=== PATIENT | female | born 1960 | race Caucasian/White ===

== ENCOUNTER → 2017-12-04 07:00 | Outpatient (CLI) | payer OTHER, SELFPAY ==
[2017-12-04 10:41] LABS: AST(SGOT) 20 U/L (15-37); Alanine Aminotransfer ALT/SGPT 22 U/L (13-56); Albumin, Serum 3.8 g/dL (3.2-5.0); Alkaline Phosphatase 51 U/L (45-117); Bilirubin, Direct 0.15 mg/dL (0.00-0.30); Cholesterol 173 mg/dL (200); Globulin 3.2 g/dL (2.2-4.2); High Density Lipoprotein 76 mg/dL; Triglycerides 48 mg/dL; Very Low Density Lipoprotein 10 mg/dL (5-40)
== END ==
PROVIDERS: Family Provider Family Medicine; PCP Family Medicine; Visit Provider Internal Medicine Cardiovascular Disease
DX: I34.1 Nonrheumatic mitral (valve) prolapse (principal); R07.89 Other chest pain
CPT/HCPCS: 36415; 80061; 80076

== ENCOUNTER 2018-10-02 07:00 | Outpatient (RCR) | payer OTHER, SELFPAY ==
--- NOTE | 2018-09-25 08:19 | HP.PTEVAL_ITS ---
Patient's Visit Information OSWALDO LARSEN is a 57 year old F referred to Physical Therapy by Juliane Licea with a diagnosis of Shoulder Pain. Date of Evaluation: 09/25/18 Physical Therapist: Lana Yuen - Visit Plan Frequency: 1x/Week Duration: 6 Weeks Plan: Dry Needling and Scapular s/s - Subjective Subjective: Right shoulder- insidious onset for about 4 months- after about 2 months- x-rays- negative- gave her options- tried a massage but that did not help. Feels it if she rotates her head to the side and at night it bothers her. Hard to get comfortable- went back about 10 days after the massage- Cortisone injection took about 2 days but it helped a little bit but its not 100% better- is more inconsistent- mid August. Pain is located right on the shoulder blade. If you palpate the area it recreates the pain. Agg: laying in bed at night. Worst: 5/10 Describes the pain as stabbing at night and will take her breath away. Eases: moving makes it feel better. Best: 0/10. Sore after the jabbing pain. Sleep: disturbed- right side and back. No pain that radiates down the arm- no N/T. Does [employer]. High school- sitting most of the day. PMHx: - Objective Posture: FH, RS, Increased winging of the right scapula. Gait: no deviation. ROM: WNL in all planes of the cervical and shoulder- increased discomfort with rotation. Strength:Scap: fair minus, Shoulder: 4/5 throughout, Elbow: 5/5, Certified Income Tax Preparer: WNL. Special Test: Briceno: negative. Palpation: tender along medial border of the scapula and into the UT and Levator. - Goals Goal 1:: Patient will be I with HEP and progression Goal Time Frame: 4-6 Weeks Goal 2:: Patient will maintain proper posture t/o tx session to demo increased scap s/s. Goal Time Frame: 4-6 Weeks Goal 3:: Patient will report no pain at night for 1 week Goal Time Frame: 4-6 Weeks - Rehabilitation Potential Physical Therapy Diagnosis: Patient presents with hypomobility- she has decreased scapular s/s leading to poor posture and increased pain. - Anticipated Interventions Patient/Client Instruction: Educate patient on: Benefits of Fitness Program Therapeutic Exercise to Include: Strength training, Endurance training, Body mechanics, Postural training, Scapular Strength/Stabilization For the Purpose of:: To improve muscle performance and motor function Manual Therapy Techniques to Include: Functional dry needling Thank you for the opportunity to evaluate your patient. For Medicare and Medicare HMO plans, please review the plan of care and approve it. It will need to be FAXED BACK to us at [phone] for Medicare purposes. Please let me know if there are questions or concerns regarding this plan of care. Physician Signature: Date:
--- NOTE | 2019-03-05 11:03 | HP.PT.NRP ---
HP - Discharge Summary (1) - Patient Information OSWALDO LARSEN was seen in my office for initial evaluation on 09/25/18. The following Plan of Care was established for this patient: Initial Frequency: 1x/Week Initial Duration: 6 Weeks - Anticipated Interventions Patient/Client Instruction: Educate patient on: Benefits of Fitness Program Therapeutic Exercise to Include: Strength training, Endurance training, Body mechanics, Postural training, Scapular Strength/Stabilization For the Purpose of:: To improve muscle performance and motor function Manual Therapy Techniques to Include: Functional dry needling This patient was last seen in our office . Pertinent comments regarding their Physical therapy will appear below: Self pay Dry needling- appropriate for d/c At this point I will be discontinuing this patient from physical therapy. I would be happy to see this patient again in the future if found appropriate by the physician. Thank you! JAMES WheelerT
== END 2018-10-02 19:00 | disposition home or self-care (01) ==
LOC: PT 07:00
PROVIDERS: Family Provider Family Medicine; PCP Family Medicine; Referring Provider Physician Assistant; Visit Provider Physician Assistant
DX: S46.811D Strain of other muscles, fascia and tendons at shoulder and upper arm level, right arm, subsequent encounter (principal)
CPT/HCPCS: 97110; 97161

== ENCOUNTER → 2018-12-11 06:19 | Outpatient (CLI) | payer OTHER, SELFPAY ==
[2018-12-11 08:48] LABS: AST(SGOT) 22 U/L (15-37); Alanine Aminotransfer ALT/SGPT 25 U/L (13-56); Albumin, Serum 3.9 g/dL (3.2-5.0); Alkaline Phosphatase 57 U/L (45-117); Bilirubin, Direct 0.22 mg/dL (0.00-0.30); Cholesterol 176 mg/dL (200); Globulin 3.2 g/dL (2.2-4.2); High Density Lipoprotein 81 mg/dL; Protein, Total 7.1 g/dL (6.4-8.2); Triglycerides 63 mg/dL; Very Low Density Lipoprotein 13 mg/dL (5-40)
== END ==
PROVIDERS: Family Provider Family Medicine; PCP Family Medicine; Referring Provider Internal Medicine Cardiovascular Disease; Visit Provider Internal Medicine Cardiovascular Disease
DX: I34.1 Nonrheumatic mitral (valve) prolapse (principal); Z79.899 Other long term (current) drug therapy
CPT/HCPCS: 36415; 80061; 80076

== ENCOUNTER → 2018-12-17 06:58 | Outpatient (CLI) | payer OTHER, SELFPAY ==
--- NOTE | 2018-12-17 07:01 | BI_ITS ---
MAMMOGRAPHY - BILATERAL SCREENING REASON FOR EXAM: Female, 58 years old. Routine annual screening examination. PERTINENT HISTORY: Non-contributory. TECHNIQUE: Digital bilateral breast henrique (3D mammographic acquisition) in the CC and MLO projections. 2-D mediolateral oblique (MLO) and craniocaudad (CC) views of both breasts were obtained. CAD: Full Field Digital Mammography with Computer Added Detection was performed. COMPARISON: Comparison is made with prior study dated October 25, 2017. FINDINGS: Breast Composition: There are scattered areas of fibroglandular density. There are no dominant masses or suspicious calcifications. No other significant abnormalities are identified. There has been no significant change since the prior study. BI/SCREENING MAMM (CAD), BILAT IMPRESSION: Stable bilateral screening mammogram. Yearly follow-up mammogram recommended. (A) ASSESSMENT CATEGORY: BIRADS Category 1: Negative. A letter regarding these results will be sent to the patient by the facility within 30 days. Approximately 10% of breast cancers are not detected by mammography. A normal mammogram should not delay biopsy of a clinically suspicious abnormality. [id number] Electronically Signed: Jf Goetz MD at 8:44 EST , Service support ,
== END ==
PROVIDERS: Family Provider Family Medicine; PCP Family Medicine; Referring Provider Nurse Practitioner Women's Health; Visit Provider Nurse Practitioner Women's Health
DX: Z12.31 Encounter for screening mammogram for malignant neoplasm of breast (principal)
CPT/HCPCS: 77067

== ENCOUNTER → 2019-09-03 15:49 | Outpatient (CLI) | payer OTHER, SELFPAY ==
[2019-09-03 14:14] VITALS: BMI 22.1
== END ==
PROVIDERS: Family Provider Family Medicine; PCP Family Medicine; Referring Provider Nurse Practitioner Women's Health; Visit Provider Nurse Practitioner Women's Health
DX: N89.8 Other specified noninflammatory disorders of vagina (principal)
CPT/HCPCS: 87070; 87205

== ENCOUNTER → 2019-12-16 07:24 | Outpatient (CLI) | payer OTHER, SELFPAY ==
[2019-10-03 14:59] VITALS: BMI 22.1
[2019-12-16 10:33] LABS: Anion Gap 5 (5-15); BUN 23 mg/dL (7-18); BUN/Creat Ratio 28.8 RATIO (10-20); Calcium,Total 9.2 mg/dL (8.5-10.1); Chloride 109 mmol/L (98-107); Cholesterol 179 mg/dL (200); EST Glomerular Filtration Rate 79 mL/min (>60); Est Glom Filt Rate - Afr Amer 95 mL/min (>60); Glucose 86 mg/dL (74-106); High Density Lipoprotein 82 mg/dL; Potassium 3.6 mmol/L (3.5-5.1); Sodium Level 143 mmol/L (136-145); Triglycerides 51 mg/dL; Very Low Density Lipoprotein 10 mg/dL (5-40)
== END ==
PROVIDERS: PCP Family Medicine; Referring Provider Family Medicine; Visit Provider Family Medicine
DX: Z13.1 Encounter for screening for diabetes mellitus (principal); Z13.220 Encounter for screening for lipoid disorders
CPT/HCPCS: 36415; 80048; 80061

== ENCOUNTER → 2019-12-18 07:22 | Outpatient (CLI) | payer OTHER, SELFPAY ==
[2018-12-17 13:24] VITALS: BMI 22.1
[2019-10-03 14:59] VITALS: BMI 22.1
--- NOTE | 2019-12-18 07:22 | BI_ITS ---
MAMMOGRAPHY - BILATERAL SCREENING REASON FOR EXAM: Female, 59 years old. Routine annual screening examination. PERTINENT HISTORY: Non-contributory. TECHNIQUE: Digital bilateral breast melinda (3D mammographic acquisition) in the CC and MLO projections. 2-D mediolateral oblique (MLO) and craniocaudad (CC) views of both breasts were obtained. CAD: Full Field Digital Mammography with Computer Added Detection was performed. COMPARISON: Comparison is made with prior examination dated December 17, 2018 and October 25, 2017. FINDINGS: Breast Composition: There are scattered areas of fibroglandular density. There are no dominant masses or suspicious calcifications. No other significant abnormalities are identified. There has been no significant change since the prior study. BI/SCREEN MAMM (CAD) W/MELINDA BILAT IMPRESSION: Stable bilateral screening mammogram. Yearly follow-up mammogram recommended. (A) ASSESSMENT CATEGORY: BIRADS Category 1: Negative. A letter regarding these results will be sent to the patient by the facility within 30 days. Approximately 10% of breast cancers are not detected by mammography. A normal mammogram should not delay biopsy of a clinically suspicious abnormality. [id number] Electronically Signed: Jf Goetz, at 9:00 EST , Service support ,
== END ==
PROVIDERS: Family Provider Family Medicine; PCP Family Medicine; Referring Provider Nurse Practitioner Women's Health; Visit Provider Nurse Practitioner Women's Health
DX: Z12.31 Encounter for screening mammogram for malignant neoplasm of breast (principal)
CPT/HCPCS: 77063; 77067

== ENCOUNTER → 2019-12-25 11:31 | Outpatient (CLI) | payer OTHER, SELFPAY ==
[2019-12-18 14:28] VITALS: BMI 19.0
[2019-12-25 14:05] LABS: Absolute Lymphocyte Count 1.25 X10^3/uL (0.83-4.51); Absolute Neutrophil Count 2.8 X10^3/uL (2.0-7.7); Basophil# 0.04 X10^3/uL; Basophil% 0.9 % (0-1); Eosinophil# 0.05 X10^3/uL; Eosinophils% 1.1 % (0-5); Hematocrit 38.8 % (37-47); Hemoglobin 12.8 g/dL (12.0-15.0); Lymphocyte # 1.25 X10^3/ul (4.0); Lymphocyte % 27.8 % (19-41); Mean Corpuscular Hgb 30.9 pg (27.0-32.0); Mean Corpuscular Volume 93.7 fL (81-99); Mean Platelet Vol. 9.8 fl (6.2-12.0); Monocyte# 0.31 X10^3/uL; Monocyte% 6.9 % (0-10); NRBC Flagged by Analyzer 0 % (0-5); Neutrophil # 2.82 X10^3/uL (2.7-7.7); Neutrophil % 62.9 % (47-70); Platelet Count 281 K/mm3 (150-450); RBC Distribution Width CV 12.2 % (11.6-14.6); RBC Distribution Width SD 42.2 fl (35.1-43.9); Red Blood Count 4.14 M/mm3 (4.2-5.4); White Blood Count 4.5 K/mm3 (4.4-11.0)
== END ==
PROVIDERS: PCP Family Medicine; Referring Provider Family Medicine; Visit Provider Family Medicine
DX: R59.1 Generalized enlarged lymph nodes (principal)
CPT/HCPCS: 36415; 85025

== ENCOUNTER → 2020-03-17 12:23 | Outpatient (CLI) | payer OTHER, SELFPAY ==
[2019-12-18 14:28] VITALS: BMI 19.0
--- NOTE | 2020-03-17 12:31 | US_ITS ---
STUDY: Soft tissue neck ULTRASOUND REASON FOR EXAM: Female, 59 years old. LEFT NECK LYMPHADENOPATHY TECHNIQUE: Ultrasound evaluation of the soft tissue neck was performed with real-time and static reynolds-scale imaging. COMPARISON: None. FINDINGS: Multiple longitudinal and transverse ultrasound images of the left side of neck fail to demonstrate an abnormal solid or cystic mass or lymphadenopathy. Some normal subcentimeter lymph nodes are noted.. US/Head/Neck Soft Tissue IMPRESSION: Normal ultrasound examination of the neck. Electronically Signed: Adam Adams MD at 13:28 EDT Tel , Service support ,
== END ==
PROVIDERS: PCP Family Medicine; Referring Provider Family Medicine; Visit Provider Family Medicine
DX: R59.1 Generalized enlarged lymph nodes (principal)
CPT/HCPCS: 76536

== ENCOUNTER → 2020-04-24 15:44 | Outpatient (CLI) | payer OTHER, SELFPAY ==
[2019-12-18 14:28] VITALS: BMI 19.0
[2020-04-24 17:28] LABS: Absolute Lymphocyte Count 1.36 X10^3/uL (0.83-4.51); Absolute Neutrophil Count 3.2 X10^3/uL (2.0-7.7); Basophil# 0.04 X10^3/uL; Basophil% 0.8 % (0-1); Eosinophil# 0.14 X10^3/uL; Eosinophils% 2.8 % (0-5); Hemoglobin 13.4 g/dL (12.0-15.0); Lymphocyte # 1.36 X10^3/ul (4.0); Lymphocyte % 26.9 % (19-41); Mean Corp Hgb Conc 33.5 g/dL (32-36); Mean Corpuscular Hgb 31.6 pg (27.0-32.0); Mean Corpuscular Volume 94.3 fL (81-99); Mean Platelet Vol. 9.9 fl (6.2-12.0); Monocyte# 0.36 X10^3/uL; Monocyte% 7.1 % (0-10); NRBC Flagged by Analyzer 0 % (0-5); Neutrophil # 3.15 X10^3/uL (2.7-7.7); Neutrophil % 62.2 % (47-70); Platelet Count 277 K/mm3 (150-450); RBC Distribution Width CV 12.2 % (11.6-14.6); Red Blood Count 4.24 M/mm3 (4.2-5.4); White Blood Count 5.1 K/mm3 (4.4-11.0)
[2020-04-24 17:39] LABS: ALB/GLOB Ratio 1.1 RATIO (0.9-2.4); AST(SGOT) 22 U/L (15-37); Alanine Aminotransfer ALT/SGPT 25 U/L (13-56); Albumin, Serum 3.9 g/dL (3.2-5.0); Alkaline Phosphatase 54 U/L (45-117); Anion Gap 5 (5-15); BUN 20 mg/dL (7-18); BUN/Creat Ratio 27.1 RATIO (10-20); Calcium,Total 9.2 mg/dL (8.5-10.1); Chloride 104 mmol/L (98-107); Creatinine, Serum 0.74 mg/dL (0.55-1.02); EST Glomerular Filtration Rate 86 mL/min (>60); Est Glom Filt Rate - Afr Amer 104 mL/min (>60); Globulin 3.5 g/dL (2.2-4.2); Glucose 105 mg/dL (74-106); Potassium 3.9 mmol/L (3.5-5.1); Protein, Total 7.4 g/dL (6.4-8.2); Sodium Level 139 mmol/L (136-145)
== END ==
PROVIDERS: PCP Family Medicine; Referring Provider Family Medicine; Visit Provider Family Medicine
DX: R19.7 Diarrhea, unspecified (principal)
CPT/HCPCS: 36415; 80053; 83735; 85025; 87177; 87209; 87493; 87506

== ENCOUNTER → 2020-04-27 | Outpatient (CLI) | payer OTHER, SELFPAY ==
[2019-12-18 14:28] VITALS: BMI 19.0
== END | disposition home or self-care (01) ==
LOC: LABSPEC 07:43
PROVIDERS: PCP Family Medicine; Referring Provider Family Medicine; Visit Provider Family Medicine
DX: R19.7 Diarrhea, unspecified (principal)
CPT/HCPCS: 87177; 87209; 87493

== ENCOUNTER → 2020-10-19 | Outpatient (CLI) | payer OTHER, SELFPAY ==
[2019-12-18 14:28] VITALS: BMI 19.0
== END | disposition home or self-care (01) ==
LOC: MFPLAB 09:25 → LABSPEC 09:26
PROVIDERS: PCP Family Medicine; Referring Provider Family Medicine; Visit Provider Family Medicine
DX: Z20.828 Contact with and (suspected) exposure to other viral communicable diseases (principal)
CPT/HCPCS: 87635; U0003

== ENCOUNTER → 2020-10-27 09:57 | Outpatient (CLI) | payer OTHER, SELFPAY ==
[2019-12-18 14:28] VITALS: BMI 19.0
[2020-10-27 12:11] LABS: Absolute Lymphocyte Count 1.16 X10^3/uL (0.83-4.51); Absolute Neutrophil Count 3.3 X10^3/uL (2.0-7.7); Basophil# 0.06 X10^3/uL; Basophil% 1.2 % (0-1); Eosinophil# 0.09 X10^3/uL; Eosinophils% 1.8 % (0-5); Hematocrit 40.4 % (37-47); Hemoglobin 13.4 g/dL (12.0-15.0); Lymphocyte # 1.16 X10^3/ul (4.0); Lymphocyte % 23.5 % (19-41); Mean Corp Hgb Conc 33.2 g/dL (32-36); Mean Corpuscular Hgb 30.6 pg (27.0-32.0); Mean Corpuscular Volume 92.2 fL (81-99); Mean Platelet Vol. 9.6 fl (6.2-12.0); Monocyte# 0.29 X10^3/uL; Monocyte% 5.9 % (0-10); Neutrophil # 3.33 X10^3/uL (2.7-7.7); Neutrophil % 67.6 % (47-70); Platelet Count 307 K/mm3 (150-450); RBC Distribution Width CV 12.1 % (11.6-14.6); RBC Distribution Width SD 41.6 fl (35.1-43.9); Red Blood Count 4.38 M/mm3 (4.2-5.4); White Blood Count 4.9 K/mm3 (4.4-11.0)
[2020-10-27 13:04] LABS: Anion Gap 5 (5-15); BUN 23 mg/dL (7-18); Calcium,Total 9.4 mg/dL (8.5-10.1); Chloride 106 mmol/L (98-107); Creatinine, Serum 0.79 mg/dL (0.55-1.02); EST Glomerular Filtration Rate 79 mL/min (>60); Est Glom Filt Rate - Afr Amer 95 mL/min (>60); Glucose 85 mg/dL (74-106); Potassium 3.9 mmol/L (3.5-5.1); Sodium Level 139 mmol/L (136-145); Thyroid Stim Hormone (TSH) 1.47 uIU/mL (0.358-3.74)
== END ==
PROVIDERS: PCP Family Medicine; Visit Provider Family Medicine
DX: R42 Dizziness and giddiness (principal)
CPT/HCPCS: 36415; 80048; 83735; 84443; 85027

== ENCOUNTER → 2020-12-21 05:55 | Outpatient (CLI) | payer OTHER, SELFPAY ==
[2020-12-14 13:48] VITALS: BMI 19.6
[2020-12-21 07:55] LABS: AST(SGOT) 19 U/L (15-37); Alanine Aminotransfer ALT/SGPT 21 U/L (13-56); Albumin, Serum 3.7 g/dL (3.2-5.0); Alkaline Phosphatase 52 U/L (45-117); Bilirubin, Direct 0.14 mg/dL (0.00-0.30); Cholesterol 196 mg/dL (200); Globulin 3.4 g/dL (2.2-4.2); High Density Lipoprotein 79 mg/dL; Protein, Total 7.1 g/dL (6.4-8.2); Triglycerides 87 mg/dL; Very Low Density Lipoprotein 17 mg/dL (5-40)
== END ==
PROVIDERS: PCP Family Medicine; Referring Provider Internal Medicine Cardiovascular Disease; Visit Provider Internal Medicine Cardiovascular Disease
DX: E78.00 Pure hypercholesterolemia, unspecified (principal); R00.2 Palpitations; R07.89 Other chest pain
CPT/HCPCS: 36415; 80061; 80076

== ENCOUNTER → 2020-12-24 07:23 | Outpatient (CLI) | payer OTHER, SELFPAY ==
[2019-12-18 14:28] VITALS: BMI 19.0
[2020-12-14 13:48] VITALS: BMI 19.6
--- NOTE | 2020-12-24 07:26 | BI_ITS ---
MAMMOGRAPHY - BILATERAL SCREENING REASON FOR EXAM: Female, 60 years old. Routine annual screening examination. PERTINENT HISTORY: Non-contributory. TECHNIQUE: Digital bilateral breast melinda (3D mammographic acquisition) in the CC and MLO projections. 2-D mediolateral oblique (MLO) and craniocaudad (CC) views of both breasts were obtained. CAD: Full Field Digital Mammography with Computer Added Detection was performed. COMPARISON: Comparison is made with prior study dated 12/18/2019 12/17/2018. FINDINGS: Breast Composition: There are scattered areas of fibroglandular density. There are no dominant masses or suspicious calcifications. No other significant abnormalities are identified. There has been no significant change since the prior study. BI/SCRN MAMM (CAD)W/MELINDA BILAT IMPRESSION: Stable bilateral screening mammogram. Yearly follow-up mammogram recommended. (A) ASSESSMENT CATEGORY: BIRADS Category 1: Negative. A letter regarding these results will be sent to the patient by the facility within 30 days. Approximately 10% of breast cancers are not detected by mammography. A normal mammogram should not delay biopsy of a clinically suspicious abnormality. [id number] Electronically Signed: Jf Goetz MD at 8:35 EST , Service support ,
== END ==
PROVIDERS: PCP Family Medicine; Referring Provider Nurse Practitioner Women's Health; Visit Provider Nurse Practitioner Women's Health
DX: Z12.31 Encounter for screening mammogram for malignant neoplasm of breast (principal)
CPT/HCPCS: 77063; 77067

== ENCOUNTER → 2021-04-05 16:47 | Outpatient (CLI) | payer OTHER, SELFPAY ==
[2020-12-24 08:09] VITALS: BMI 22.6
--- NOTE | 2021-04-05 16:49 | RAD_ITS ---
HISTORY: Trauma, foot injury EXAMINATION/TECHNIQUE: XR Foot Min 3 Views: COMPARISON: Right foot series 06/14/16 FINDINGS: BONES/JOINTS: Nondisplaced intra-articular fracture at the fifth proximal phalanx, MTP joint. Preservation of the joint spaces. No sclerotic or destructive changes observed. SOFT TISSUES: No soft tissue swelling or gas. No radiopaque foreign body. RAD/Foot min 3 Views IMPRESSION: Nondisplaced intra-articular fracture fifth proximal phalanx. at 1711 Reported and signed by: Bin Trujillo MD Electronically Signed: Bin Trujillo MD at 17:10 EDT Tel , Service support ,
== END ==
PROVIDERS: PCP Family Medicine; Referring Provider Family Medicine; Visit Provider Family Medicine
DX: S99.921A Unspecified injury of right foot, initial encounter (principal)
CPT/HCPCS: 73630

== ENCOUNTER → 2021-06-23 | Outpatient (CLI) | payer OTHER, SELFPAY | END | disposition home or self-care (01) | PROVIDERS: PCP Family Medicine; Referring Provider Family Medicine; Visit Provider Family Medicine | DX: Z20.822 Contact with and (suspected) exposure to COVID-19 (principal) | CPT/HCPCS: 87635; U0005; U0003 ==

== ENCOUNTER → 2021-08-19 06:20 | Outpatient (CLI) | payer OTHER, SELFPAY ==
--- NOTE | 2021-08-19 07:00 | MRI_ITS ---
STUDY: MRI RIGHT FOREFOOT WITHOUT CONTRAST REASON FOR EXAM: Continued pain in the arch of the right foot, fracture of the right fifth proximal phalanx in March. TECHNIQUE: Standardized fat and water weighted pulse sequences were obtained in all 3 orthogonal planes. COMPARISON: Radiographs 06/05/2021. FINDINGS: There is mild arthrosis of the metatarsophalangeal joint of the hallux with mild chondral thinning and an osteochondral lesion of the first metatarsal head (T1 sagittal image 5) measuring 0.3 cm in AP dimension with cystic change of the fragment (inversion recovery sagittal image 5). Normal tibial and fibular sesamoids, with normal sesamoids-first metatarsal articulations. Normal interphalangeal joint of the hallux. Normal proximal and distal phalanges of the great toe. Normal medial and lateral heads of the flexor hallucis brevis tendons. Normal flexor and extensor hallucis longus tendons. Normal second through fifth metatarsophalangeal (MTP) joints. Normal interphalangeal joints of the second through fifth toes. Normal proximal, middle and distal phalanges of the second through fourth toes. There is mild healed fracture deformity of the medial base of the fifth metatarsal (T2 series 5 image 11) with mild residual bone edema in the medial aspect of the right fifth metatarsal base (inversion recovery sagittal image 23). There is an intermetatarsal neuroma of the second webspace (T1 axial series 6 images 26, 27) measuring 0.3 cm in transverse dimension. There is mild intermetatarsal bursitis of the third webspace (T2 series 7 image 23). Normal flexor and extensor tendons of the second through fifth toes. There is no stress fracture or bone edema of the metatarsals. Normal intrinsic muscles of the forefoot. There is a pressure lesion in the subcutis adipose space at the plantar lateral aspect of the fifth metatarsophalangeal joint (T1 series 6 images 19-21). MRI/Lower Ext/No Jt/w/o IMPRESSION: Mild healed fracture deformity of the medial base of the fifth metatarsal with mild residual bone edema. Intermetatarsal neuroma of the second webspace. Mild intermetatarsal bursitis of the third webspace. Mild arthrosis of the first metatarsophalangeal joint with an osteochondral lesion of the first metatarsal head. Pressure lesion in the subcutis adipose space at the plantar lateral aspect of the fifth metatarsophalangeal joint. No demonstrated metatarsal stress fracture. Electronically Signed: Adalberto Clements MD at 8:29 EDT Tel , Service support ,
== END ==
PROVIDERS: PCP Family Medicine; Referring Provider Podiatrist; Visit Provider Podiatrist
DX: M84.374A Stress fracture, right foot, initial encounter for fracture (principal)
CPT/HCPCS: 73718

== ENCOUNTER → 2021-08-26 11:55 | Outpatient (CLI) | payer OTHER, SELFPAY ==
--- NOTE | 2021-08-26 11:58 | RAD_ITS ---
STUDY: X-RAY - CERVICAL SPINE REASON FOR EXAM: Female, 60 years old. CERVICALGIA TECHNIQUE: 5 view(s) of the cervical spine were obtained. COMPARISON: None FINDINGS: Normal anterior atlantoaxial articulation. Normal odontoid process. Normal cervical lordosis. There is multi-level endplate spondylosis. There is multi-level degenerative disc disease with multilevel disc space narrowing. There is multi-level osseous foraminal stenosis. 2 mm retrolisthesis of C4 on C5 and C5 on C6. The soft tissue structures are unremarkable. RAD/Cerv Spine 4 or 5 Views IMPRESSION: Severe degenerative disc disease with 2 mm retrolisthesis of C4 on C5 and C5 on C6. Electronically Signed: Adam Adams MD at 9:20 EDT Tel , Service support ,
== END ==
PROVIDERS: PCP Family Medicine; Referring Provider Family Medicine; Visit Provider Family Medicine
DX: M50.321 Other cervical disc degeneration at C4-C5 level (principal); M47.812 Spondylosis without myelopathy or radiculopathy, cervical region
CPT/HCPCS: 72050

== ENCOUNTER 2021-11-02 23:39 | Emergency (ER) | payer OTHER, SELFPAY ==
[2021-11-02 23:40] VITALS: BP 137/83; PULSE 101; RESP 18; TEMP 36.6; O2SAT 98; BMI 23.2
[2021-11-02 23:50] VITALS: O2SAT 99
--- NOTE | 2021-11-02 23:50 | EKG12_ITS ---
Test Reason : CHEST PAIN Blood Pressure : / mmHG Vent. Rate : 074 BPM Atrial Rate : 074 BPM P-R Int : 118 ms QRS Dur : 082 ms QT Int : 362 ms P-R-T Axes : 063 082 045 degrees QTc Int : 401 ms Normal sinus rhythm Nonspecific ST and T wave abnormality Abnormal ECG Confirmed by JAYE WHELAN, CALE ([id number]), assistant editor DANISH FINCH ([id number]) on 11/05/2021 9:57:27 AM Referred By: JALEEL Confirmed By:CALE CEE MD
--- NOTE | 2021-11-03 | RAD_ITS ---
STUDY: X-RAY CHEST REASON FOR EXAM: Female, 61 years old. chest pain TECHNIQUE: Single AP portable view of the chest. COMPARISON: None. FINDINGS: The lungs are clear and expanded. There is no demonstrated pleural abnormality. Normal size heart. Normal mediastinum and xiomara. Normal visualized pulmonary arteries. Normal visualized aortic arch and descending thoracic aorta. Normal visualized thoracic spine. Normal visualized ribs, clavicles, and shoulders. There is no demonstrated abnormality of the visualized soft tissue structures of the upper abdomen. RAD/Chest 1 View (Portable) IMPRESSION: Normal x-ray examination of the chest. Electronically Signed: Wilberto Kim MD at 0:30 EST Tel , Service support ,
[2021-11-03 00:15] LABS: Absolute Lymphocyte Count 2.13 X10^3/uL (0.83-4.51); Absolute Neutrophil Count 2.5 X10^3/uL (2.0-7.7); Basophil# 0.05 X10^3/uL; Basophil% 0.9 % (0-1); Eosinophil# 0.17 X10^3/uL; Eosinophils% 3.1 % (0-5); Hematocrit 38.9 % (37-47); Hemoglobin 13.1 g/dL (12.0-15.0); Lymphocyte # 2.13 X10^3/ul (0.83-4.51); Lymphocyte % 38.7 % (19-41); Mean Corp Hgb Conc 33.7 g/dL (32-36); Mean Corpuscular Hgb 30.4 pg (27.0-32.0); Mean Corpuscular Volume 90.3 fL (81-99); Mean Platelet Vol. 9.2 fl (6.2-12.0); Monocyte# 0.64 X10^3/uL; Monocyte% 11.6 % (0-10); NRBC Flagged by Analyzer 0 % (0-5); Neutrophil % 45.5 % (47-70); Platelet Count 371 K/mm3 (150-450); RBC Distribution Width CV 11.9 % (11.6-14.6); RBC Distribution Width SD 39.1 fl (35.1-43.9); Red Blood Count 4.31 M/mm3 (4.2-5.4); White Blood Count 5.5 K/mm3 (4.4-11.0)
[2021-11-03] MEDS: Aspirin 81 MG TAB.CHEW 324 MG PO (00:21)
[2021-11-03 00:33] LABS: Anion Gap 8 (5-15); BUN 16 mg/dL (7-18); BUN/Creat Ratio 20.7 RATIO (10-20); Chloride 106 mmol/L (98-107); Creatinine, Serum 0.77 mg/dL (0.55-1.02); EST Glomerular Filtration Rate 81 mL/min (>60); Est Glom Filt Rate - Afr Amer 98 mL/min (>60); Estimated Creatinine Clearance 55.81 ml/min; Glucose 122 mg/dL (74-106); Potassium 3.6 mmol/L (3.5-5.1); Sodium Level 143 mmol/L (136-145); Troponin-I HS 4 pg/mL (3.0-54.0)
[2021-11-03 00:47] LABS: Magnesium 2.1 mg/dL (1.6-2.6)
--- NOTE | 2021-11-03 00:50 | NURSING ---
Vu, in pharm, called for booster.
[2021-11-03 00:51] VITALS: BP 107/61; PULSE 73; RESP 16; O2SAT 97
--- NOTE | 2021-11-03 00:53 | EDS_ITS ---
HPI History of Present Illness Chief Complaint: Chest Pain Informant: patient Narrative Narrative: Patient presents with intermittent chest pressure and palpitations reporting concerns for paroxysmal atrial fibrillation. Symptoms started September 29 over a month ago felt palpitations occasional lightheaded symptoms. States it was not abnormal. She does occasionally feel chest pressure. Since initial onset she is felt intermittent pressure in her chest and lightheaded symptoms. October 30, 4 days ago felt palpitations again. History of mitral valve prolapse followed by Dr. Perez. She states she called the office could not get in until the . Denies tobacco. Father with atrial fibrillation history who this past June she does admit increasing stress. Multiple family members with Covid 1 in the hospital. She is vaccinated she has no current symptoms. She states had congestion 2 weeks ago with a PCR test that was negative. She is due for a booster with her last vaccination this past December. Denies cough symptoms. Prior similar symptoms: No PFSH PFSH Medical History (Updated 11/03/21 @ 01:[address] Mynor Krause DO) Nonrheumatic mitral (valve) prolapse Palpitations Shortened LA interval Home Medications aspirin 81 mg tablet,delayed release 81 mg PO QDAY 10/25/17 [History Last Taken Unknown] calcium carbonate 600 mg-vitamin D3 20 mcg (800 unit) tablet 1 tab PO QDAY 10/25/17 [History Last Taken Unknown] multivitamin 1 tab PO QDAY 12/11/17 [History Last Taken Unknown] biotin 1,000 mcg chewable tablet 10,000 mcg PO DAILY tab 12/14/20 [History Last Taken Unknown] hydroxyzine HCl 25 mg tablet 12.5 mg PO QHS PRN tab 12/14/20 [History Last Taken Unknown] clobetasol 0.05 % topical ointment 1 applic TOPICAL DAILY PRN #15 g 01/04/21 [Rx Last Taken Unknown] conjugated estrogens 0.625 mg/gram vaginal cream 0.625 mg TOPICAL 2XW #30 g 07/06/21 [Rx Last Taken Unknown] Allergy/AdvReac Type Severity Reaction Status Date / Time No Known Allergies Allergy Verified 12/24/20 08:10 Family History Father Heart disease Hypertension Mother , lymphoma No problems noted. Social History Smoking Status: Never smoker alcohol intake: current details: social substance use type: does not use what type of physical activity do you participate in: additional frequency: 1-2 times per week duration: 60-90 minutes/day seatbelt use: always do you feel safe at home: Yes additional social history: Spouse Edilberto HERRERA ROS ED Constitutional Constitutional ED: Denies chills, fever(s) or sweats Eyes Eyes: Denies change in vision ENT ENT ED: Denies dysphagia or sore throat Cardiovascular Cardiovascular: Reports chest pain and palpitations; Denies leg edema or racing heartbeat Respiratory/Chest Respiratory/Chest: Denies cough, dyspnea or dyspnea on exertion Gastrointestinal Gastrointestinal: Denies abdominal pain, diarrhea, nausea or vomiting Genitourinary Genitourinary ED: Denies dysuria, hematuria or urinary frequency Musculoskeletal Musculoskeletal: Denies back pain, extremity pain or neck pain Integumentary Denies rash or wounds Neurologic Neurologic: Denies headache(s), paresthesias or weakness EXAM Physical Exam Const Vital Signs: 11/02/21 23:40 11/02/21 23:50 11/03/21 00:51 Temperature 98 F Temperature Source Temporal Pulse Rate 101 H 73 Respiratory Rate 18 16 Blood Pressure 137/83 H 107/61 Blood Pressure Mean 101 76 Pulse Ox 98 99 97 Oxygen Delivery Method Room Air Room Air 11/03/21 01:32 11/03/21 01:41 Temperature Temperature Source Pulse Rate 71 Respiratory Rate 19 H Blood Pressure 112/80 Blood Pressure Mean Pulse Ox 100 97 Oxygen Delivery Method Positive well nourished and well developed General Appearance ED: well developed and NAD HEENT Reports moist mucous membranes normocephalic and atraumatic Eyes PERRL, EOMs intact bilaterally and conjunctivae normal General Eye ED: Yes normal appearance of both eyes Neck no lymphadenopathy and supple General: Negative for tenderness Chest Wall Chest: Negative for tenderness Resp normal respiratory effort and normal air movement Effort and Inspection: symmetric chest movement; Negative for respiratory distress Cardio regular rate, regular rhythm and no murmurs Peripheral Pulses: pulses 2+ throughout GI normal to inspection, nondistended, normoactive bowel sounds and non-tender Palpation: Negative for guarding or rebound tenderness present Back/Spine no CVA tenderness and no thoracic nor lumbar tenderness Extremity normal to inspection General Extremety ED: Negative for edema or tenderness General Extremity: Negative for edema Neuro oriented x3 and no sensory deficits noted Sensorium / Orientation: awake and alert Skin no rashes or lesions noted and no wounds MDM MDM MDM Narrative Medical decision making narrative: Patient is currently asymptomatic on my evaluation. Intermittent chest pressure primary palpitations with lightheaded symptoms. EKG cardiac work-up negative thyroid magnesium also negative. Chest x-ray negative. Patient's heart score is a 2. Patient reports occasional caffeine use. Discussed refraining from this due to palpitations. She is order for 48-hour Holter monitor which is ordered however she will return tomorrow for her to be placed. Patient is reassured. Also discussed Covid booster for which she received the Pfizer vaccination. She is currently asymptomatic. She is a candidate for this. This was ordered to be given in the ED today. She had shoulder muscle aches from her previous vaccinations. 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 All questions answered. Patient is being discharged under pandemic conditions under declared global, national and state disaster activation, with limited medical resources. Patient and community understands this. Results discussed in layman's terms to the patient satisfaction. All questions answered in layman's terms. Patient understands importance of follow-up care as directed. Patient has been instructed to return to the ED immediately if new symptoms, problems, or questions occur. We mutually agree with the plan of disposition. The patient understand that they may call or return with any questions or concerns at any time. Lab Data Attestation: I reviewed the patient's lab results. Labs: Laboratory Results - last 24 hr 11/02/21 11/02/21 11/03/21 23:59 23:59 00:00 WBC 5.5 RBC 4.31 Hgb 13.1 Hct 38.9 MCV 90.3 MCH 30.4 MCHC 33.7 RDW Std Deviation 39.1 RDW Coeff of Kanika 11.9 Plt Count 371 MPV 9.2 Immature Gran % (Auto) 0.200 Neut % (Auto) 45.5 L Lymph % (Auto) 38.7 Petroleum % (Auto) 11.6 H Eos % (Auto) 3.1 Baso % (Auto) 0.9 Absolute Neuts (auto) 2.5 Absolute Lymphs (auto) 2.13 Nucleated RBC % 0 Sodium 143 Potassium 3.6 Chloride 106 Carbon Dioxide 29.0 Anion Gap 8 BUN 16 Creatinine 0.77 Estim Creat Clear Calc 55.81 Est GFR (MDRD) Af Amer 98 Est GFR (MDRD) Non-Af 81 BUN/Creatinine Ratio 20.7 H Glucose 122 H Calcium 9.0 Magnesium 2.1 Troponin I High Sens 4 TSH 2.60 Radiography Chest X-Ray - ED: 1 View, Read by ED Physician and Read by Radiologist Diagnostic Testing: Clinical Impression(s) from Imaging Studies Chest X-Ray 11/03/21 00:00 IMPRESSION: Normal x-ray examination of the chest. Electronically Signed: Wilberto Kim MD at 0:30 EST Tel , Service support , EKG Initial EKG: Attestation: I personally reviewed and interpreted this EKG as follows: Comments: Sinus rate of 74, no ST or T wave changes. Artifact noted baseline in V3 and V4. Discharge Plan Triage Chief Complaint: Chest Pain ED Provider: Mynor Krause Dx/Rx/DC Orders Clinical Impression: Palpitations, Chest pain, High priority for COVID-19 vaccination Instructions: ED Chest Pain, Uncertain Cause, ED Palpitations, mRNA COVID-19 Vaccine Prescriptions: No Action aspirin [Adult Low Dose Aspirin] 81 mg tablet,delayed release (DR/EC) 81 mg PO QDAY RF: 0 calcium carbonate-vitamin D3 [Caltrate with Vitamin D3] 600 mg(1,500mg) -800 unit tablet 1 tab PO QDAY RF: 0 biotin 1,000 mcg tablet,chewable 10,000 mcg PO DAILY RF: 0 multivitamin tablet 1 tab PO QDAY RF: 0 hydroxyzine HCl 25 mg tablet 12.5 mg PO QHS PRNRF: 0 clobetasol 0.05 % ointment 1 applic TOPICAL DAILY PRN (Reason: itching) Qty: 15 RF: 2 Premarin 0.625 mg/gram cream 0.625 mg TOPICAL 2XW Qty: 30 RF: 2 Primary Care Provider: Yusuf Ashton Referrals: Yusuf Perez MD [STAFF PHYSICIAN] - 3-5 Days Yusuf Ashton MD [Primary Care Provider] - Activity Restrictions/Additional Instructions: Cardiac work-up negative. Refrain from caffeine use. Return tomorrow for placement of Holter monitor. You have been given your booster dose vaccination of [employer] for Covid 19. Disposition Disposition: Home, Self Care Discharge Date/Time: 11/03/21 01:41
[2021-11-03] MEDS: COVID-19 VACC, MRNA(PFIZER)/PF 30 MCG/0.3 ML SYRINGE IM (01:29)
[2021-11-03 01:32] VITALS: BP 112/80; PULSE 71; RESP 19; O2SAT 100
[2021-11-03 01:41] VITALS: O2SAT 97
== END 2021-11-03 01:41 | disposition home or self-care (01) ==
PROVIDERS: Emergency Provider Emergency Medicine; PCP Family Medicine; Visit Provider Emergency Medicine
DX: R00.2 Palpitations (principal); R07.9 Chest pain, unspecified; Z23 Encounter for immunization
CPT/HCPCS: 71045; 80048; 83735; 84443; 84484; 85025; 91300; 93005; 99284

== ENCOUNTER 2021-11-15 09:52 | Outpatient (CLI) | payer OTHER, SELFPAY | END 2021-11-15 23:59 | disposition short-term general hospital (02) | LOC: PSN 09:54 | PROVIDERS: PCP Family Medicine; Visit Provider Internal Medicine Cardiovascular Disease | DX: R00.2 Palpitations (principal); R94.31 Abnormal electrocardiogram [ECG] [EKG] | CPT/HCPCS: 93225; 93226 ==

== ENCOUNTER 2021-11-18 07:01 | Outpatient (CLI) | payer OTHER, SELFPAY ==
--- NOTE | 2021-11-18 07:32 | MRI_ITS ---
History: CERVICAL STENOSIS Technique: T1 and T2 MR imaging of the cervical spine performed without contrast enhancement in axial and sagittal planes. Comparison: Cervical spine radiographs August 26, 2021 Findings: Multilevel disc degeneration vertebral body hypertrophy noted. No malalignment of the vertebral bodies. No bone marrow edema. Cervical cord is normal. Paraspinal soft tissues are normal. C2-3: No disc protrusion. Normal caliber spinal canal and neural foramina. C3-4: No disc protrusion. Prominent neural foraminal narrowing on the left related to uncinate joint and facet arthropathy. C4-5: Prominent disc osteophyte complex causing mild impression on the thecal sac moderate narrowing of the neural foramina related to uncinate joint hypertrophy. C5-6: Mild disc bulging and posterior ligamentous redundancy results in mild spinal stenosis. Bilateral neural foraminal narrowing related to uncinate joint hypertrophy. C6-7: Mild disc bulging and posterior ligamentous redundancy results in mild spinal stenosis. Moderate narrowing of the neural foramina related to uncinate joint hypertrophy. C7-T1: Mild disc bulging and posterior ligamentous redundancy without significant impingement on the spinal canal. Moderate right neural foraminal narrowing related to facet joint arthropathy and uncinate joint hypertrophy. MRI/Spine Cervical (Routine) IMPRESSION: Prominent diffuse spondylosis resulting in mild spinal stenosis at the C4-5, C5-6 and C6-7 levels. Multilevel neural foraminal narrowing related to bony hypertrophy. at 1220 Reported and signed by: Wade Alexis MD Electronically Signed: Wade Alexis MD at 12:19 EST Tel , Service support ,
== END 2021-11-18 23:59 | disposition short-term general hospital (02) ==
LOC: MRI 07:05
PROVIDERS: PCP Family Medicine; Referring Provider Nurse Practitioner; Visit Provider Nurse Practitioner
DX: M48.02 Spinal stenosis, cervical region (principal); M50.30 Other cervical disc degeneration, unspecified cervical region
CPT/HCPCS: 72141

== ENCOUNTER 2021-12-17 06:05 | Outpatient (CLI) | payer OTHER, SELFPAY ==
[2021-12-17 07:12] LABS: Absolute Lymphocyte Count 1.48 X10^3/uL (0.83-4.51); Absolute Neutrophil Count 4.1 X10^3/uL (2.0-7.7); Basophil# 0.04 X10^3/uL; Basophil% 0.6 % (0-1); Eosinophil# 0.16 X10^3/uL; Eosinophils% 2.5 % (0-5); Hematocrit 39.9 % (37-47); Lymphocyte # 1.48 X10^3/ul (0.83-4.51); Lymphocyte % 23.5 % (19-41); Mean Corp Hgb Conc 35.1 g/dL (32-36); Mean Corpuscular Hgb 32.1 pg (27.0-32.0); Mean Corpuscular Volume 91.5 fL (81-99); Mean Platelet Vol. 9.7 fl (6.2-12.0); Monocyte# 0.47 X10^3/uL; Monocyte% 7.5 % (0-10); NRBC Flagged by Analyzer 0 % (0-5); Neutrophil # 4.12 X10^3/uL (2.7-7.7); Neutrophil % 65.6 % (47-70); Platelet Count 370 K/mm3 (150-450); RBC Distribution Width CV 11.9 % (11.6-14.6); RBC Distribution Width SD 40.2 fl (35.1-43.9); Red Blood Count 4.36 M/mm3 (4.2-5.4); White Blood Count 6.3 K/mm3 (4.4-11.0)
[2021-12-17 07:36] LABS: AST(SGOT) 24 U/L (15-37); Alanine Aminotransfer ALT/SGPT 25 U/L (13-56); Albumin, Serum 3.7 g/dL (3.2-5.0); Alkaline Phosphatase 55 U/L (45-117); Bilirubin, Direct 0.24 mg/dL (0.00-0.30); Cholesterol 156 mg/dL (200); Globulin 3.5 g/dL (2.2-4.2); High Density Lipoprotein 70 mg/dL; Protein, Total 7.2 g/dL (6.4-8.2); Triglycerides 38 mg/dL; Very Low Density Lipoprotein 8 mg/dL (5-40)
[2021-12-17 07:38] LABS: Anion Gap 5 (5-15); BUN 20 mg/dL (7-18); BUN/Creat Ratio 24.9 RATIO (10-20); Calcium,Total 9.1 mg/dL (8.5-10.1); Chloride 109 mmol/L (98-107); EST Glomerular Filtration Rate 77 mL/min (>60); Est Glom Filt Rate - Afr Amer 94 mL/min (>60); Glucose 94 mg/dL (74-106); Potassium 3.9 mmol/L (3.5-5.1); Sodium Level 143 mmol/L (136-145)
== END 2021-12-17 23:59 | disposition home or self-care (01) ==
LOC: LAB 06:07
PROVIDERS: Internal Medicine Cardiovascular Disease; PCP Family Medicine; Referring Provider Nurse Practitioner Family; Visit Provider Nurse Practitioner Family
DX: Z13.1 Encounter for screening for diabetes mellitus (principal); I34.1 Nonrheumatic mitral (valve) prolapse; E78.00 Pure hypercholesterolemia, unspecified; R94.31 Abnormal electrocardiogram [ECG] [EKG]; R00.2 Palpitations; R59.1 Generalized enlarged lymph nodes
CPT/HCPCS: 36415; 80048; 80061; 80076; 85025

== ENCOUNTER 2021-12-24 15:53 | Outpatient (CLI) | payer OTHER, SELFPAY ==
--- NOTE | 2021-12-24 16:10 | US_ITS ---
STUDY: ULTRASOUND - US Head/Neck Soft Tissue 12/24/2021 9:22 PM REASON FOR EXAM: Female, 61 years old. LYMPHADENOPATHY L POST CERVICALLYMPHADENOPATHY L POST CERVICAL TECHNIQUE: A superficial ultrasound was performed with real-time and static reynolds-scale imaging. COMPARISON: None. FINDINGS: There is no fluid collection. There is no abscess. There is a lymph node at the level of interest. This is along the posterior left neck. It measures 7 x 5 mm and 6 x 3 mm. US/Head/Neck Soft Tissue IMPRESSION: There is a lymph node at the level of interest. Electronically Signed: Jacuqes Taveras MD at 21:24 EST ,
== END 2021-12-24 23:59 | disposition home or self-care (01) ==
PROVIDERS: PCP Family Medicine; Referring Provider Nurse Practitioner Family; Visit Provider Nurse Practitioner Family
DX: R59.0 Localized enlarged lymph nodes (principal)
CPT/HCPCS: 76536

== ENCOUNTER 2021-12-27 12:34 | Outpatient (CLI) | payer OTHER, SELFPAY ==
[2021-12-29 18:18] LABS: HPV APTIMA, High Risk Negative (Negative)
== END 2021-12-27 23:59 | disposition home or self-care (01) ==
LOC: LABSPEC 12:35
PROVIDERS: PCP Family Medicine; Referring Provider Nurse Practitioner Women's Health; Visit Provider Nurse Practitioner Women's Health
DX: Z12.4 Encounter for screening for malignant neoplasm of cervix (principal); Z78.0 Asymptomatic menopausal state
CPT/HCPCS: 87624; 88175; G0145

== ENCOUNTER 2022-01-12 11:31 | Outpatient (CLI) | payer OTHER, SELFPAY ==
--- NOTE | 2022-01-12 11:39 | ECHOD_ITS ---
Reason For Study: MVP Procedure This was a 2D Doppler, Color Flow transthoracic echocardiogram. The exam was of adequate technical quality. Exam performed in department. Left Ventricle Normal LV size. Left ventricular systolic function is normal. The estimated ejection fraction is 65 %. No evidence for diastolic dysfunction. No regional wall motion abnormalities noted. Right Ventricle Normal RV size. Normal systolic function. Atria Normal left atrium. Normal right atrium. Aneurysmal atrial septum. Bubble contrast study negative for right to left interatrial shunt. Mitral Valve There is no mitral annular calcification. Mild diffuse mitral valve thickening. 2D echocardiographic findings compatible with redundant mitral valve chordae tendonae. Mild (1+) mitral valve insufficiency. Tricuspid Valve Normal tricuspid valve. Mild tricuspid valve insufficiency. Right ventricular systolic pressure estimated to be 21 mmHg. Aortic Valve Trisinus/trileaflet aortic valve. Mild focal aortic valve thickening. Pulmonic Valve The pulmonic valve is not well visualized. Trivial pulmonic valve insufficiency. Great Vessels Normal sized aortic root. Pericardium/Pleural No pericardial effusion. MMode/2D Measurements & Calculations LVIDd: 3.9 cm IVSd: 0.66 cm Ao root diam: 2.7 cm LVIDs: 2.6 cm LVPWd: 0.68 cm RVDd: 2.6 cm FS: 32.6 % LAV(MOD-bp): 32.8 ml LVAd ap4: 20.5 cm2 LVAd ap2: 21.3 cm2 LAV(MOD-bp) Indexed: 22.2 ml/m2 LVLd ap4: 6.5 cm LVLd ap2: 6.8 cm LAV(MOD-sp2): 31.2 ml EDV(MOD-sp4): 54.3 ml EDV(MOD-sp2): 57.4 ml LAV(MOD-sp4): 36.2 ml EDV(sp4-el): 54.8 ml EDV(sp2-el): 56.8 ml LVAs ap4: 11.7 cm2 LVAs ap2: 11.5 cm2 LVLs ap4: 5.6 cm LVLs ap2: 6.0 cm ESV(MOD-sp4): 21.0 ml ESV(MOD-sp2): 19.4 ml ESV(sp4-el): 20.9 ml ESV(sp2-el): 18.7 ml EF(MOD-sp4): 61.4 % EF(MOD-sp2): 66.1 % EF(sp4-el): 61.8 % SV(MOD-sp4): 33.4 ml SV(MOD-sp2): 37.9 ml SV(sp4-el): 33.8 ml LA dimension(2D): 2.5 cm LA A4 area: 14.1 cm2 RA A4 area: 12.1 cm2 Time Measurements MV dec time: 0.18 sec Doppler Measurements & Calculations MV E max carlos: 67.0 cm/sec Lat Peak E' Carlos: 11.9 cm/sec Med Peak E' Carlos: 11.5 cm/sec MV A max carlos: 55.6 cm/sec E/E' lat: 5.6 E/E' med: 5.8 MV E/A: 1.2 Ao V2 max: 127.5 cm/sec LV V1 max: 95.1 cm/sec PA V2 max: 81.2 cm/sec Ao max P.5 mmHg LV V1 max P.6 mmHg TR max carlos: 212.9 cm/sec TR max P.1 mmHg ECHO/Echo Complete Interpretation Summary Left ventricular systolic function is normal. The estimated ejection fraction is 65 %. Aneurysmal atrial septum. Mild diffuse mitral valve thickening. 2D echocardiographic findings compatible with redundant mitral valve chordae te ndonae. Mild (1+) mitral valve insufficiency. Mild tricuspid valve insufficiency. Mild focal aortic valve thickening. Trivial pulmonic valve insufficiency. Right ventricular systolic pressure estimated to be 21 mmHg. No evidence for diastolic dysfunction. Ordering Physician: Yusuf Perez Referring Physician: Yusuf Ashton Performed By: Coco Bernal RDCS
--- NOTE | 2022-01-12 17:06 | STRESSREP ---
Stress Test Report Date: 01-12-2022 Procedure: Exercise tolerance test Indications: Chest pain; palpitations Consent: Per the patient Procedure: The patient exercised on a Alex protocol for 9 minutes and 30 seconds completing Stage III and 30 seconds of Stage IV achieving a peak heart rate of 179 bpm (111% predicted maximal heart rate) with a peak blood pressure 150/70 mmHg and a peak MET capacity of approximately 11 MET's. The baseline ECG demonstrated sinus rhythm. The peak exercise ECG demonstrated somatic/motion artifact with no obvious ECG changes with the peak recovery ECG demonstrating approximately 1 mm horizontal/upsloping ST segment depression in leads II, III, aVF and V4 through V6 with resolution towards baseline beginning less than 1 minute in recovery. There was a rare PVC during exercise. The functional capacity was considered good. The patient had no complaint of chest discomfort during exercise or recovery. The examination was discontinued secondary to dyspnea. Impression: 1. Technically adequate (percent predicted maximal heart rate greater than 85%) exercise tolerance test 2. Peak exercise ECG demonstrated somatic/motion artifact with no obvious ECG changes with the peak recovery ECG demonstrating approximately 1 mm horizontal/upsloping ST segment depression in leads II, III, aVF and V4 through V6 with resolution towards baseline beginning less than 1 minute in recovery 3. There was a rare PVC during exercise This note was generated with [employer] dictation software. It may contain incorrect words, spelling, and punctuation that were not noted in checking the note before signing.
== END 2022-01-12 23:59 | disposition home or self-care (01) ==
LOC: CVS 11:32
PROVIDERS: PCP Family Medicine; Visit Provider Internal Medicine Cardiovascular Disease
DX: R00.2 Palpitations (principal); I34.1 Nonrheumatic mitral (valve) prolapse
CPT/HCPCS: 93017; 93306

== ENCOUNTER 2022-01-16 19:44 | Emergency (ER) | payer OTHER, SELFPAY ==
[2022-01-16 19:45] VITALS: BP 126/80; PULSE 98; RESP 18; TEMP 36.6; O2SAT 100; BMI 23.6
[2022-01-16 19:49] VITALS: BP 126/80; PULSE 98; RESP 18; TEMP 36.6; O2SAT 100
--- NOTE | 2022-01-16 20:29 | EDS_ITS ---
HPI History of Present Illness Chief Complaint: Back Narrative Narrative: 61-year-old female presenting with neck pain. This is an acute exacerbation of a chronic issue. She is had since 2019. She had a recent MRI which showed degenerative disc disease. She is seen her primary care physician who started her on cyclobenzaprine and gabapentin on . She states she is not getting much relief. She denies any new trauma. She states she is seeing Dr. Lopez from orthopedic spine who stated that they do not operate on arthritic necks. She currently has a consult for pain management on the and is waiting with her appointment. She states that she needs something more for pain. [facility] Medical History Chest pain, unspecified Ectopic cardiac beats Nonrheumatic mitral (valve) prolapse Palpitations Shortened MO interval Home Medications aspirin 81 mg tablet,delayed release 81 mg PO QDAY 10/25/17 [History Last Taken Unknown] calcium carbonate 600 mg-vitamin D3 20 mcg (800 unit) tablet 1 tab PO QDAY 10/25/17 [History Last Taken Unknown] multivitamin 1 tab PO QDAY 12/11/17 [History Last Taken Unknown] biotin 1,000 mcg chewable tablet 10,000 mcg PO DAILY tab 12/14/20 [History Last Taken Unknown] hydroxyzine HCl 25 mg tablet 12.5 mg PO QHS PRN tab 12/14/20 [History Last Taken Unknown] clobetasol 0.05 % topical ointment 1 applic TOPICAL DAILY PRN #15 g 01/04/21 [Rx Last Taken Unknown] conjugated estrogens 0.625 mg/gram vaginal cream 0.625 mg TOPICAL 2XW #30 g 07/06/21 [Rx Last Taken Unknown] collagen PO 12/27/21 [History Last Taken Unknown] cyclobenzaprine mg 01/16/22 [History Last Taken Unknown] gabapentin 01/16/22 [History Last Taken Unknown] hydrocodone-acetaminophen 1 tab PO Q6H PRN 3 Days #10 tab 01/16/22 [Rx Last Taken Unknown] Allergy/AdvReac Type Severity Reaction Status Date / Time No Known Allergies Allergy Verified 12/27/21 08:05 Family History Father Heart disease Hypertension Mother , lymphoma No problems noted. Social History Smoking Status: Never smoker alcohol intake: current details: social substance use type: does not use what type of physical activity do you participate in: additional frequency: 1-2 times per week duration: 60-90 minutes/day seatbelt use: always do you feel safe at home: Yes additional social history: Spouse Edilberto HERRERA ROS ED Constitutional Constitutional ED: Denies chills or fever(s) Eyes Eyes: Denies blurry vision ENT ENT ED: Denies rhinorrhea or sore throat Cardiovascular Cardiovascular: Denies chest pain or palpitations Respiratory/Chest Respiratory/Chest: Denies cough or dyspnea Gastrointestinal Gastrointestinal: Denies abdominal pain, nausea or vomiting Genitourinary Genitourinary ED: Denies dysuria or hematuria Musculoskeletal Musculoskeletal: Reports neck pain Integumentary Denies Abrasions or rash Neurologic Neurologic: Denies headache(s) EXAM Physical Exam Const Vital Signs: 01/16/22 19:45 01/16/22 19:49 Temperature 97.8 F 97.8 F Temperature Source Temporal Temporal Pulse Rate 98 98 Respiratory Rate 18 18 Blood Pressure 126/80 H 126/80 H Blood Pressure Mean 95 95 Pulse Ox 100 100 Oxygen Delivery Method Room Air Room Air Positive well nourished General Appearance ED: NAD HEENT atraumatic Eyes PERRL and EOMs intact bilaterally Neck Neck Narrative: Tenderness palpation of the left paraspinal musculature of the cervical spine. This radiates into the left trapezius. This has limited range of motion rotation of the cervical spine secondary to pain. Resp normal respiratory effort and clear to auscultation bilaterally Extremity normal to inspection Neuro oriented x3 Sensorium / Orientation: alert Psych mental status grossly normal Skin no rashes or lesions noted and No no jaundice MDM MDM MDM Narrative Medical decision making narrative: Patient presenting with acute exacerbation of chronic neck pain. She states that now she is having more of a radicular pain that radiates into the left shoulder. This was discussed with her primary care physician. She states the gabapentin cyclobenzaprine not working. She is currently awaiting a pain management consult on the . She requesting more for pain. She is given [place] in the ED. She will be given a short supply of this to help bridge her. She states that she is going to follow-up with chiropractics tomorrow for either needling or deep tissue massage. We discussed at length that this is becoming a chronic issue and that it would be very important for her to follow-up with pain management to manage her pain. She acknowledged understanding of this. Patient discharged home in stable condition. Impression: 1. Cervical radiculopathy Discharge Plan Triage Chief Complaint: Back ED Provider: Allan Mccarthy Dx/Rx/DC Orders Instructions: ED Radiculopathy, Cervical Prescriptions: New hydrocodone-acetaminophen 5-325 mg tablet 1 tab PO Q6H PRN (Reason: pain) 3 Days Qty: 10 RF: 0 No Action aspirin [Adult Low Dose Aspirin] 81 mg tablet,delayed release (DR/EC) 81 mg PO QDAY RF: 0 calcium carbonate-vitamin D3 [Caltrate with Vitamin D3] 600 mg(1,500mg) -800 unit tablet 1 tab PO QDAY RF: 0 biotin 1,000 mcg tablet,chewable 10,000 mcg PO DAILY RF: 0 multivitamin tablet 1 tab PO QDAY RF: 0 hydroxyzine HCl 25 mg tablet 12.5 mg PO QHS PRNRF: 0 collagen PO RF: 0 gabapentin 300 mg capsule RF: 0 cyclobenzaprine 5 mg tablet RF: 0 clobetasol 0.05 % ointment 1 applic TOPICAL DAILY PRN (Reason: itching) Qty: 15 RF: 2 Premarin 0.625 mg/gram cream 0.625 mg TOPICAL 2XW Qty: 30 RF: 2 Primary Care Provider: Yusuf Ashton Referrals: Yusuf Ashton MD [Primary Care Provider] - Disposition Disposition: Home, Self Care
[2022-01-16] MEDS: HYDROcodone Bitartrate/Apap 5/325 Tablet PO (20:44)
== END 2022-01-16 21:32 | disposition home or self-care (01) ==
LOC: ED 20:34
PROVIDERS: Emergency Provider Student in an Organized Health Care Education/Training Program; PCP Family Medicine; Visit Provider Student in an Organized Health Care Education/Training Program
DX: M54.12 Radiculopathy, cervical region (principal); G89.29 Other chronic pain; Z79.82 Long term (current) use of aspirin
CPT/HCPCS: 99283

== ENCOUNTER 2022-01-17 06:59 | Outpatient (CLI) | payer OTHER, SELFPAY ==
--- NOTE | 2022-01-17 07:02 | BI_ITS ---
MAMMOGRAPHY - BILATERAL SCREENING REASON FOR EXAM: Female, 61 years old. Routine annual screening examination. PERTINENT HISTORY: Non-contributory. TECHNIQUE: Digital bilateral breast melinda (3D mammographic acquisition) in the CC and MLO projections. 2-D mediolateral oblique (MLO) and craniocaudad (CC) views of both breasts were obtained. CAD: Full Field Digital Mammography with Computer Added Detection was performed. COMPARISON: Comparison is made with prior examination of 12/24/2020 and 12/18/2019. FINDINGS: Breast Composition: There are scattered areas of fibroglandular density. There are no dominant masses or suspicious calcifications. No other significant abnormalities are identified. There has been no significant change since the prior study. BI/SCRN MAMM (CAD)W/MELINDA BILAT IMPRESSION: Stable bilateral screening mammogram. Yearly follow-up mammogram recommended. (A) ASSESSMENT CATEGORY: BIRADS Category 1: Negative. A letter regarding these results will be sent to the patient by the facility within 30 days. Approximately 10% of breast cancers are not detected by mammography. A normal mammogram should not delay biopsy of a clinically suspicious abnormality. [id number] Electronically Signed: Jf Goetz MD at 9:01 EDT ,
== END 2022-01-17 23:59 | disposition home or self-care (01) ==
LOC: OPBI 07:00
PROVIDERS: PCP Family Medicine; Visit Provider Nurse Practitioner Women's Health
DX: Z12.31 Encounter for screening mammogram for malignant neoplasm of breast (principal)
CPT/HCPCS: 77063; 77067

== ENCOUNTER 2022-01-20 15:50 | Outpatient (CLI) | payer OTHER, SELFPAY ==
--- NOTE | 2022-01-20 15:59 | BD_ITS ---
STUDY: DUAL ENERGY X-RAY ABSORPTIOMETRY / DXA REASON FOR EXAM: Female, 61 years old. N95.9 TECHNIQUE: Bone Mineral Density (BMD) measurements of lumbar spine and bilateral hips were obtained. COMPARISON: None. FINDINGS: Lumbar Spine (L1-L4): g/cm2 (0.881) / T-score (-1.5) / Z-score (-0.1) Findings are suggestive of osteopenia with a low fracture risk. Left Femur Total: g/cm2 (0.849) / T-score (-0.8) / Z-score (0.2) Left Femoral Neck: g/cm2 (0.711) / T-score (-1.2) / Z-score (0.0) Right Femur Total: g/cm2 (0.788) / T-score (-1.3) / Z-score (-0.3) Right Femoral Neck: g/cm2 (0.650) / T-score (-1.8) / Z-score (-0.5) BD/Dexa Bone Density Study IMPRESSION: The patient is considered osteopenic as outlined below according to World Jaziel Organization (WHO) criteria with a moderate fracture risk. Reference Information: The T-score is the number of standard deviations above or below the standard which is normal for young adults at their peak bone mineral density. The World Health Organization (WHO) interprets the T-scores as follows: Above -1 Normal bone density Between -1 and -2.5 Osteopenia Equal to / or below -2.5 Osteoporosis As a practical clinical guideline, osteopenia may be graded as follows: Mild -1 through -1.5 Moderate -1.6 through -2.0 Severe -2.1 through -2.4 The Z-score is the number of standard deviations above or below age-matched controls. A Z-score of less than -1.5 would be considered abnormal. References: 1. NIH Osteoporosis and Related Bone Diseases www osteo.org 2. International Society for Clinical Densitometry www iscd.org 3. National Osteoporosis Foundation www nof.org Electronically Signed: Jf Goetz MD at 9:18 EDT ,
== END 2022-01-20 23:59 | disposition home or self-care (01) ==
LOC: OPBD 15:50
PROVIDERS: PCP Family Medicine; Visit Provider Nurse Practitioner Family
DX: N95.9 Unspecified menopausal and perimenopausal disorder (principal); Z13.820 Encounter for screening for osteoporosis
CPT/HCPCS: 77080

== ENCOUNTER 2022-02-08 06:33 | Outpatient (CLI) | payer OTHER, SELFPAY ==
--- NOTE | 2022-02-08 08:52 | STRESSREP ---
Stress Test Report Date: 02-08-2022 Procedure: Exercise tolerance test/imaging study Indications: Chest pain; cardiac ectopy; MVP; abnormal ECG exercise tolerance test Consent: Per the patient Procedure: The patient exercised on a Alex protocol for 9 minutes completing Stage III achieving a peak heart rate of 179 bpm (111% predicted maximal heart rate) with a peak blood pressure 144/68 mmHg and a peak MET capacity of 10 METs. The baseline ECG demonstrated normal sinus rhythm. The peak exercise ECG demonstrated 1 mm of horizontal/upsloping ST segment depression in leads II, III, aVF, and V3 through V6 with gradual resolution towards baseline in recovery. There were no cardiac dysrhythmias pretest, during exercise, or recovery. The functional capacity was considered good. There was no complaint of chest discomfort during exercise or recovery. The examination was discontinued secondary to dyspnea. Impression: 1. Technically adequate (percent predicted maximal heart rate greater than 85%) exercise tolerance test 2. Peak exercise ECG with 1 mm of horizontal/upsloping ST segment depression in leads II, III, aVF, and V3 through V6 with gradual resolution towards baseline in recovery 3. There were no cardiac dysrhythmias pretest, during exercise, or recovery 4. Nuclear images pending Myocardial perfusion imaging study: Technique: The patient was injected with 10.5 mCi of technetium 99m Cardiolite and subsequently rest SPECT Cardiolite nuclear imaging was obtained in the horizontal long, vertical long, and short axis views. The patient exercised on a Alex protocol for 9 minutes completing Stage III achieving a peak heart rate of 179 bpm (111% predicted maximal heart rate) with a peak blood pressure 144/68 mmHg and a peak MET capacity of 10 METs. The patient was injected with 32.9 mCi of technetium 99m Cardiolite and subsequently stress SPECT Cardiolite nuclear imaging was obtained in the horizontal long, vertical long, and short axis views. A gated Cardiolite study at peak stress was obtained. Interpretation: Rest and stress SPECT Cardiolite nuclear imaging status post realignment, normalization, and attenuation correction, demonstrates the appearance of relative uniform tracer uptake and myocardial perfusion appearing within normal limits. There is end systolic thickening and brightening. The gated Cardiolite study demonstrates myocardial thickening and inward wall motion. The reported LVEF is 78%. Impression: 1. Rest and stress SPECT Cardiolite nuclear imaging demonstrate relative uniform tracer uptake and myocardial perfusion appearing within normal limits. 2. The gated Cardiolite study reports an LVEF of 78%. This note was generated with [employer] software. It may contain incorrect words, spelling, and punctuation that were not noted in checking the note before signing.
== END 2022-02-08 23:59 | disposition home or self-care (01) ==
LOC: CVS 06:38
PROVIDERS: PCP Family Medicine; Referring Provider Internal Medicine Cardiovascular Disease; Visit Provider Internal Medicine Cardiovascular Disease
DX: R07.9 Chest pain, unspecified (principal); I49.49 Other premature depolarization
CPT/HCPCS: 78452; 93017; A9500; A4216

== ENCOUNTER → 2022-08-18 | Outpatient (CLI) | payer OTHER, SELFPAY ==
[2022-08-18 15:26] LABS: Absolute Lymphocyte Count 1.19 X10^3/uL (0.83-4.51); Absolute Neutrophil Count 3.5 X10^3/uL (2.0-7.7); Basophil# 0.03 X10^3/uL; Basophil% 0.6 % (0-1); Eosinophil# 0.08 X10^3/uL; Eosinophils% 1.5 % (0-5); Hematocrit 40.2 % (37-47); Hemoglobin 13.6 g/dL (12.0-15.0); Lymphocyte # 1.19 X10^3/ul (0.83-4.51); Lymphocyte % 22.7 % (19-41); Mean Corp Hgb Conc 33.8 g/dL (32-36); Mean Corpuscular Hgb 31.5 pg (27.0-32.0); Mean Corpuscular Volume 93.1 fL (81-99); Mean Platelet Vol. 9.6 fl (6.2-12.0); Monocyte# 0.47 X10^3/uL; NRBC Flagged by Analyzer 0 % (0-5); Neutrophil # 3.47 X10^3/uL (2.7-7.7); Platelet Count 267 K/mm3 (150-450); RBC Distribution Width CV 12.3 % (11.6-14.6); RBC Distribution Width SD 42.3 fl (35.1-43.9); Red Blood Count 4.32 M/mm3 (4.2-5.4); White Blood Count 5.3 K/mm3 (4.4-11.0)
[2022-08-18 16:22] LABS: AST(SGOT) 23 U/L (15-37); Alanine Aminotransfer ALT/SGPT 23 U/L (13-56); Albumin, Serum 3.7 g/dL (3.2-5.0); Alkaline Phosphatase 58 U/L (45-117); Anion Gap 5 (5-15); BUN 9 mg/dL (7-18); BUN/Creat Ratio 12.6 RATIO (10-20); CRP 3.32 mg/L (0.0-3.0); Calcium,Total 9.2 mg/dL (8.5-10.1); Chloride 109 mmol/L (98-107); Creatinine, Serum 0.72 mg/dL (0.55-1.02); EST Glomerular Filtration Rate 88 mL/min (>60); Est Glom Filt Rate - Afr Amer 107 mL/min (>60); Globulin 3.6 g/dL (2.2-4.2); Glucose 90 mg/dL (74-106); Potassium 3.4 mmol/L (3.5-5.1); Protein, Total 7.3 g/dL (6.4-8.2); Sodium Level 141 mmol/L (136-145)
== END | disposition home or self-care (01) ==
LOC: MFPLAB 14:21
PROVIDERS: PCP Family Medicine; Referring Provider Family Medicine; Visit Provider Family Medicine
DX: K57.32 Diverticulitis of large intestine without perforation or abscess without bleeding (principal)
CPT/HCPCS: 36415; 80053; 85025; 86140

== ENCOUNTER → 2022-12-22 | Outpatient (CLI) | payer OTHER, SELFPAY ==
[2022-12-22 07:21] LABS: AST(SGOT) 20 U/L (15-37); Alanine Aminotransfer ALT/SGPT 22 U/L (13-56); Albumin, Serum 3.8 g/dL (3.2-5.0); Alkaline Phosphatase 58 U/L (45-117); Bilirubin, Direct 0.21 mg/dL (0.00-0.30); Cholesterol 173 mg/dL (200); Globulin 3.3 g/dL (2.2-4.2); High Density Lipoprotein 90 mg/dL; Protein, Total 7.1 g/dL (6.4-8.2); Triglycerides 41 mg/dL; Very Low Density Lipoprotein 8 mg/dL (5-40)
[2022-12-22 10:19] LABS: Vitamin D,25 Hydroxy 57.9 ng/mL
[2022-12-22 10:24] LABS: Anion Gap 6 (5-15); BUN 15 mg/dL (7-18); BUN/Creat Ratio 18.2 RATIO (10-20); Calcium,Total 9.6 mg/dL (8.5-10.1); Chloride 107 mmol/L (98-107); Creatinine, Serum 0.82 mg/dL (0.55-1.02); EST Glomerular Filtration Rate 75 mL/min (>60); Est Glom Filt Rate - Afr Amer 91 mL/min (>60); Glucose 100 mg/dL (74-106); Potassium 3.8 mmol/L (3.5-5.1); Sodium Level 142 mmol/L (136-145); Thyroid Stim Hormone (TSH) 1.68 uIU/mL (0.358-3.74)
[2022-12-22 10:34] LABS: Absolute Lymphocyte Count 1.06 X10^3/uL (0.83-4.51); Absolute Neutrophil Count 4.4 X10^3/uL (2.0-7.7); Basophil# 0.04 X10^3/uL; Basophil% 0.6 % (0-1); Eosinophil# 0.22 X10^3/uL; Eosinophils% 3.5 % (0-5); Hematocrit 41.1 % (37-47); Hemoglobin 13.4 g/dL (12.0-15.0); Lymphocyte # 1.06 X10^3/ul (0.83-4.51); Lymphocyte % 16.9 % (19-41); Mean Corp Hgb Conc 32.6 g/dL (32-36); Mean Corpuscular Hgb 30.8 pg (27.0-32.0); Mean Corpuscular Volume 94.5 fL (81-99); Mean Platelet Vol. 9.9 fl (6.2-12.0); Monocyte# 0.56 X10^3/uL; Monocyte% 8.9 % (0-10); NRBC Flagged by Analyzer 0 % (0-5); Neutrophil # 4.37 X10^3/uL (2.7-7.7); Neutrophil % 69.9 % (47-70); Platelet Count 295 K/mm3 (150-450); RBC Distribution Width CV 12.4 % (11.6-14.6); Red Blood Count 4.35 M/mm3 (4.2-5.4); White Blood Count 6.3 K/mm3 (4.4-11.0)
[2022-12-22 15:12] LABS: Hemoglobin A1c 5.3 % (3.8-5.6)
== END | disposition home or self-care (01) ==
LOC: LAB 06:27
PROVIDERS: PCP Family Medicine; Referring Provider Internal Medicine Cardiovascular Disease; Visit Provider Internal Medicine Cardiovascular Disease
DX: Z00.00 Encounter for general adult medical examination without abnormal findings (principal); Z13.0 Encounter for screening for diseases of the blood and blood-forming organs and certain disorders involving the immune mechanism; Z13.220 Encounter for screening for lipoid disorders; Z13.1 Encounter for screening for diabetes mellitus; Z13.29 Encounter for screening for other suspected endocrine disorder; M85.80 Other specified disorders of bone density and structure, unspecified site
CPT/HCPCS: 36415; 80048; 80061; 80076; 82306; 83036; 84443; 85025

== ENCOUNTER → 2023-01-18 | Outpatient (CLI) | payer OTHER, SELFPAY ==
--- NOTE | 2023-01-18 07:01 | BI_ITS ---
MAMMOGRAPHY - BILATERAL SCREENING REASON FOR EXAM: Female, 62 years old. Routine annual screening examination. PERTINENT HISTORY: Non-contributory. TECHNIQUE: Digital bilateral breast melinda (3D mammographic acquisition) in the CC and MLO projections. 2-D mediolateral oblique (MLO) and craniocaudad (CC) views of both breasts were obtained. CAD: Full Field Digital Mammography with Computer Added Detection was performed. COMPARISON: Comparison is made with prior examination dated January 17, 2022 and August 23, 2021. FINDINGS: Breast Composition: There are scattered areas of fibroglandular density. There are no dominant masses or suspicious calcifications. No other significant abnormalities are identified. There has been no significant change since the prior study. BI/SCRN MAMM (CAD)W/MELINDA BILAT IMPRESSION: Stable bilateral screening mammogram. Yearly follow-up mammogram recommended. (A) ASSESSMENT CATEGORY: BIRADS Category 1: Negative. A letter regarding these results will be sent to the patient by the facility within 30 days. Approximately 10% of breast cancers are not detected by mammography. A normal mammogram should not delay biopsy of a clinically suspicious abnormality. [id number] Electronically Signed: Jf Goetz MD at 8:25 EDT ,
== END | disposition home or self-care (01) ==
LOC: OPBI 06:59
PROVIDERS: PCP Family Medicine; Visit Provider Nurse Practitioner Women's Health
DX: Z12.31 Encounter for screening mammogram for malignant neoplasm of breast (principal)
CPT/HCPCS: 77063; 77067

== ENCOUNTER 2023-01-26 15:08 | Outpatient (RCR) | payer OTHER, SELFPAY | END 2023-01-27 23:59 | LOC: NS 15:08 | PROVIDERS: PCP Family Medicine; Visit Provider Family Medicine | DX: Z71.3 Dietary counseling and surveillance (principal) | CPT/HCPCS: 97802 ==

== ENCOUNTER 2023-03-02 15:33 | Outpatient (RCR) | payer OTHER, SELFPAY | END 2023-03-29 23:59 | LOC: NS 15:33 | PROVIDERS: PCP Family Medicine; Visit Provider Family Medicine | DX: Z71.3 Dietary counseling and surveillance (principal) | CPT/HCPCS: 97803 ==

== ENCOUNTER → 2023-04-28 | Outpatient (CLI) | payer OTHER, SELFPAY ==
[2023-04-28 16:23] LABS: Absolute Lymphocyte Count 1.54 X10^3/uL (0.83-4.51); Absolute Neutrophil Count 3.4 X10^3/uL (2.0-7.7); Basophil# 0.04 X10^3/uL; Basophil% 0.7 % (0-1); Eosinophil# 0.08 X10^3/uL; Eosinophils% 1.5 % (0-5); Hematocrit 37.4 % (37-47); Hemoglobin 12.7 g/dL (12.0-15.0); Lymphocyte # 1.54 X10^3/ul (0.83-4.51); Lymphocyte % 28.5 % (19-41); Mean Corpuscular Hgb 31.7 pg (27.0-32.0); Mean Corpuscular Volume 93.3 fL (81-99); Mean Platelet Vol. 9.4 fl (6.2-12.0); Monocyte# 0.36 X10^3/uL; Monocyte% 6.7 % (0-10); NRBC Flagged by Analyzer 0 % (0-5); Neutrophil # 3.38 X10^3/uL (2.7-7.7); Neutrophil % 62.4 % (47-70); Platelet Count 296 K/mm3 (150-450); RBC Distribution Width CV 12.3 % (11.6-14.6); RBC Distribution Width SD 42.5 fl (35.1-43.9); Red Blood Count 4.01 M/mm3 (4.2-5.4); White Blood Count 5.4 K/mm3 (4.4-11.0)
[2023-04-28 16:46] LABS: Erythrocyte Sedimentation Rate 3 mm/hr (0-30)
[2023-04-28 17:21] LABS: Vitamin B12 477 pg/mL (211-911)
[2023-04-28 17:28] LABS: Hemoglobin A1c 5.1 % (3.8-5.6)
[2023-04-28 17:29] LABS: ALB/GLOB Ratio 1.1 RATIO (0.9-2.4); AST(SGOT) 21 U/L (15-37); Alanine Aminotransfer ALT/SGPT 19 U/L (13-56); Albumin, Serum 3.7 g/dL (3.2-5.0); Alkaline Phosphatase 55 U/L (45-117); Amylase 89 U/L (25-115); Anion Gap 4 (5-15); BUN 15 mg/dL (7-18); BUN/Creat Ratio 19.4 RATIO (10-20); CRP < 2.90 mg/L (0.0-3.0); Calcium,Total 9.3 mg/dL (8.5-10.1); Chloride 106 mmol/L (98-107); Creatinine, Serum 0.78 mg/dL (0.55-1.02); EST Glomerular Filtration Rate 80 mL/min (>60); Est Glom Filt Rate - Afr Amer 97 mL/min (>60); Ferritin 90 ng/mL (8-252); Globulin 3.4 g/dL (2.2-4.2); Glucose 98 mg/dL (74-106); Iron Binding Capacity,Total 346 ug/dL (250-450); LDH 195 U/L (84-246); Lipase 93 U/L (13-75); Magnesium 2.1 mg/dL (1.6-2.6); Phosphorus 3.5 mg/dL (2.5-4.9); Potassium 3.4 mmol/L (3.5-5.1); Protein, Total 7.1 g/dL (6.4-8.2); Sodium Level 138 mmol/L (136-145); Thyroid Stim Hormone (TSH) 1.25 uIU/mL (0.358-3.74)
[2023-04-28 17:39] LABS: Bilirubin, Direct 0.14 mg/dL (0.00-0.30); Cholesterol 196 mg/dL (200); High Density Lipoprotein 81 mg/dL; Triglycerides 53 mg/dL; Very Low Density Lipoprotein 11 mg/dL (5-40)
[2023-05-04 14:08] LABS: Anti-Centromere B Ab <0.2 AI (0.0-0.9); Anti-Chromatin <0.2 AI (0.0-0.9); Anti-Jo <0.2 AI (0.0-0.9); Anti-Scleroderma-70 AB <0.2 AI (0.0-0.9); Anti-dsDNA Ab 1 IU/mL (0-9); Beef <0.10 kU/L (Class 0); Chocolate <0.10 kU/L (Class 0); Clam <0.10 kU/L (Class 0); Codfish <0.10 kU/L (Class 0); Corn <0.10 kU/L (Class 0); Egg, White <0.10 kU/L (Class 0); Egg, Whole <0.10 kU/L (Class 0); Milk (Cow) <0.10 kU/L (Class 0); Peanut <0.10 kU/L (Class 0); Pork <0.10 kU/L (Class 0); RNP Ab <0.2 AI (0.0-0.9); SCALLOP <0.10 kU/L (Class 0); SESAME SEED <0.10 kU/L (Class 0); SJOGREN'S Anti-SS-A test < 0.2 AI (0.0-0.9); SJOGREN'S Anti-SS-B test < 0.2 AI (0.0-0.9); Shrimp 0.14 kU/L (Class 0/I); Smith Ab <0.2 AI (0.0-0.9); Soybean <0.10 kU/L (Class 0); Vitamin D 1,25-Dihydroxy 58.7 pg/mL (24.8-81.5); Walnut, (Food) <0.10 kU/L (Class 0); Wheat <0.10 kU/L (Class 0)
[2023-05-05 00:06] LABS: Albumin 4.2 g/dL (2.9-4.4); Alpha-1-Globulins 0.2 g/dL (0.0-0.4); Alpha-2-Globulins 0.6 g/dL (0.4-1.0); Cytoplasmic Ab (C-ANCA) <1:20 titer (Neg:<1:20); Endomysial Antibody IgA Negative (Negative); Gamma Globulin 0.9 g/dL (0.4-1.8); Gastrin, Serum 23 pg/mL (0-115); Immunoglobulin A 122 mg/dL (87-352); Immunoglobulin E 45 IU/mL (6-495); Immunoglobulin G 1047 mg/dL (586-1602); Immunoglobulin M 53 mg/dL (26-217); PROEL- TOTAL PROTEIN 6.7 g/dL (6.0-8.5); Perinuclear Ab (P-ANCA) <1:20 titer (Neg:<1:20); t-Transglutaminase IgA <2 U/mL (0-3)
== END | disposition home or self-care (01) ==
PROVIDERS: Internal Medicine Cardiovascular Disease; PCP Family Medicine; Referring Provider Internal Medicine Gastroenterology; Visit Provider Internal Medicine Gastroenterology
DX: E78.00 Pure hypercholesterolemia, unspecified (principal); I34.1 Nonrheumatic mitral (valve) prolapse; K57.92 Diverticulitis of intestine, part unspecified, without perforation or abscess without bleeding; R14.0 Abdominal distension (gaseous); R00.2 Palpitations
CPT/HCPCS: 80053; 80061; 80076; 82150; 82248; 82607; 82652; 82728; 82784; 82785; 82941; 83036; 83516; 83550; 83615; 83690; 83735; 84100; 84165; 84443; 85025; 85652; 86003; 86005; 86140; 86225; 86235; 86255; 86256; 86334

== ENCOUNTER → 2023-05-22 | Outpatient (CLI) | payer OTHER, SELFPAY ==
--- NOTE | 2023-05-22 09:34 | NM_ITS ---
CLINICAL: 62-year-old female with history of abdominal pain. RADIONUCLIDE HEPATOBILIARY SCINTIGRAPHY COMPARISON: None available FINDINGS: Following the intravenous administration of 5.5 mCi of 99m Tc Mebrofenin, hepatobiliary images reveal:. 1. Relatively prompt and homogeneous radiopharmaceutical concentration is noted by the liver parenchyma. No parenchymal defects are identified. The left lobe is prominent in size. 2. Gallbladder activity is identified at 30 minutes post radiopharmaceutical administration. 3. Intestinal tract is not visualized during 60 minutes of sequential image acquisition. Small bowel is defined following cholecystokinin administration. 4. Washout of the radiopharmaceutical by the hepatic parenchyma is qualitatively normal. Cholecystokinin (0.02 ug/kg) was administered intravenously over a 3-minute period. The post CCK gallbladder ejection fraction calculated at 20 minutes following Cholecystokinin administration was noted to be 84.0 % (normal greater than 35%). During 30 minutes of post CCK imaging, there is scintigraphic evidence of refilling of the gallbladder and visualized post CCK duodenal gastric reflux. NM/Hepatobilliary Img w/Pharm Int IMPRESSION: 1. A gallbladder ejection fraction calculated to be greater than 35% following the administration of Cholecystokinin makes the probability of functional hepatobiliary disease (gallbladder dyskinesia) and/or organic hepatobiliary disease (chronic acalculous cholecystitis and/or cystic duct syndrome) to be low. (Fatuma Anderson et al, Journal of Nuclear Medicine 32:1695, 1991). 2. An encountered normal gallbladder ejection fraction with refilling of the gallbladder following CCK administration may represent the presence of Sphincter of Oddi dysfunction. Correlation with Sphincter of Oddi manometry may be of benefit. (Marilee and Marilee, J Nucl Med 38:1824, 1997). 3. There is scintigraphic evidence of post cholecystokinin duodenal gastric reflux. Electronically Signed: Adam Hernández, at 8:40 EDT ,
== END | disposition home or self-care (01) ==
PROVIDERS: PCP Family Medicine; Referring Provider Internal Medicine Gastroenterology; Visit Provider Internal Medicine Gastroenterology
DX: K57.92 Diverticulitis of intestine, part unspecified, without perforation or abscess without bleeding (principal); R14.0 Abdominal distension (gaseous)
CPT/HCPCS: 78227; A9537; J2805

== ENCOUNTER → 2023-05-26 | Outpatient (CLI) | payer OTHER, SELFPAY ==
--- NOTE | 2023-05-26 09:55 | NM_ITS ---
CLINICAL: 62-year-old female with history of abdominal bloating. SEMI-SOLID PHASE 99m Tc SULFUR COLLOID GASTRIC EMPTYING STUDY COMPARISON: None available FINDINGS: The patient was administered 1.1 mCi of 99m Tc sulfur colloid mixed with oatmeal and consumed per os. Image acquisitions in the anterior-posterior projections were obtained for 60 minutes. There is prompt visualization of the stomach. There is no gastroesophageal reflux identified. First order kinetics are maintained throughout the duration of the acquisitions. The T ? linear fit was extrapolated to be 5.74 minutes, (Normal: 12-56 minutes). NM/Gastric Emptying Study IMPRESSION: 1. ABNORMAL 99m Tc sulfur colloid semi-solid phase (oatmeal) gastric emptying imaging examination. A. There is delayed semi-solid phase gastric emptying compared to normal controls. (Suni et al, J Nucl Med Tech 38: 186, 2010). Electronically Signed: Adam Hernández, at 10:13 EDT ,
== END | disposition home or self-care (01) ==
PROVIDERS: PCP Family Medicine; Referring Provider Internal Medicine Gastroenterology; Visit Provider Internal Medicine Gastroenterology
DX: K57.92 Diverticulitis of intestine, part unspecified, without perforation or abscess without bleeding (principal); R14.0 Abdominal distension (gaseous)
CPT/HCPCS: 78264; A9541

== ENCOUNTER 2023-12-14 08:19 | Day surgery (SDC) | payer OTHER, SELFPAY ==
[2023-12-14 09:03] VITALS: BP 118/68; PULSE 68; RESP 16; TEMP 37.1; O2SAT 98; BMI 22.1
[2023-12-14] MEDS: Lactated Ringers 1,000 ML 15 ML IV (09:14)
--- NOTE | 2023-12-14 09:15 | HP.PCM_ITS ---
History and Physical Date of Admission: 12/14/23 62 F who presents to the office today for Dr. Britt established: ? Colonoscopy 03.03.23 advanced to cecum, diverticulosis wand myochosis; small internal hemorrhoids. Remaining exam without acute/chronic abnormality. *BGI established 6.30.23 with postprandial bloating and distention for the last two years; previously seen by nutrition services but no diets have been effective. Recently diagnosed with diverticulitis and atb therapy by PCP. Biochemical CBC, ESR, CMP, LFT, CRP, LDH, A1c, Vit B12, D1,25, magnesium, phosphorus, RAST, gastrin, amylase, ferritin, iron, TIBC, DARIELA comp, ANCA, [place], celiac, GAME, IBD, chromogranin A without pertinent abnormality. RAST Class I shrimp, lipase H93 Stool fat, elastase, lactoferrin not performed HIDA 7. EF 84% ? GET 7. 5.74minutes (12-56) Contact 8.. recommending anti-dumping diet. OV 09.15.23 she is feeling better with use of anti-dumping diet, working with personal lines account manager who is working with her diet/improving calorie consumption. In the last week she is having some upper abdominal pain that she thinks is triggered by coffee versus peanut butter. ROS Const Constitutional: No fatigue ENT ENT: No difficulty swallowing Gastro GI: Positive for abdominal pain, bloating, constipation, diarrhea and nausea/dyspepsia; No belching, change in bowel habits, change in stool character, coffee ground emesis, cramping, heartburn, difficulty swallowing, feeling full early, excessive flatus, incontinent of stools, Vomiting blood/hematemesis, Blood in stool, loose stools, Black,tarry stools, pain with swallowing, vomiting or other Musc Musculoskeletal: Positive for joint pain Skin Skin: No yellowing of the eye or itchy eyes Psych Psychiatric: No anxiety and No depression Endo Endocrine: No fatigue Aller/Imm Allergy/Immunologic: No itchy eyes Daniel/Lymp Hematologic/Lymphatic: No easy bleeding or easy bruising Exam Const General: cooperative and comfortable Nutritional Appearance: average body habitus and well nourished HENMT Head: normal to inspection Ears: hearing grossly normal bilaterally Nose: external nose normal Face and sinus: normal facial exam Mouth: oral mucosae normal Throat: posterior oropharynx normal Eyes General: appearance normal, both eyes and all related structures Neck Neck: normal visual inspection Chest Chest palpation & inspection: normal inspection of the chest and normal palpation of entire chest wall Resp Effort & Inspection: normal respiratory effort Auscultation: Bilateral: Clear to Auscultation Cardio Palpation: normal PMI Rate: regular rate Rhythm: regular rhythm GI Inspection: normal to inspection Auscultation: normal bowel sounds Percussion: normal to percussion Palpation: no hepatosplenomegaly Skin General: no rashes or lesions noted Neuro General: patient alert Extrem General: normal to inspection Psych Affect: normal affect Quality Reporting Tobacco Screening ([facility] 138) Smoking Status: Never smoker Assessment and Plan Assessment and Plan (1) Bloating: Status: Chronic Plan: Differential diagnosis for bloating does include food related sensitivities, functional bowel disease or upper GI tract, exocrine pancreatic insufficiency, H. pylori associated gastritis, bile induced gastritis. She will undergo HIDA scan to see if there is any signs of duodenal gastric reflux she will also undergo gastric emptying study to see if any signs or symptoms of delayed gastric emptying. Further recommendation to follow after blood work and stool testing along with functional testing. Her gastric emptying study and gave the time of 5.74 minutes. It is associated with an accelerated gastrocolic reflex or dumping. However in the body of the report and the end of the report is said that she had prolonged gastric emptying. We will wait for an official word from radiologist. Recommend that she continue half milligram per kilogram of protein and increase her fiber along with eating 6 small meals a day. She was identified as having duodenal gastric reflux which I think is contributing to a lot of her symptoms to. She knows that if she eats a lot of sugary foods like simple sugars that she will more s ymptoms so we are recommending to stay away from those things at this time. (2) Diverticulitis: Status: Resolved Plan: She has not shown any signs of diverticulitis at this time. She is at risk for sigmoid colitis associated with diverticulosis. That is a endoscopic diagnosis. I do not think she needs colonoscopy at this time. She is actually improving with some modifications that she is doing with her diet. She still experiences some bloating and some nausea. I think that should be investigated with stool studies and functional test that we will order at this time. I have examined the patient and the H&P has been reviewed. There are no clinical changes since date of exam.
--- NOTE | 2023-12-14 10:00 | IMM_PTH ---
PATHOLOGY RESULTS PATIENT: OSWALDO LARSEN LOC: EN U#:[id number] AGE/SX: 63/F ROOM: RE12/14/[address]: Dr. Edwin Frausto DO : 1960 BED: DIS: 12/14/2023 SPEC #: [id number] RECD: 12/14/23 14:16 STATUS: BRII REQ #: [id number] EMERITA: 12/14/23 10:[address]: Edwin Frausto DEPT: IMMUNOHISTOCHEMISTRY RECD BY: Janneth Caro ENTERED: 12/14/23 14:16 SP TYPE: IMMUNO OTHR DR: Dara Mcdonald DO Tissues: Pylorus Procedures: H Pylori (initial) PHYSICIAN & INSTITUTION [place] [address] SPECIMEN INFORMATION: Tissue Source: B - Pylorus Clinical Info: Bloating Specimen Number: [id number] CPT code: 67784 METHODOLOGY: Deparaffinized sections of prefer/formalin-fixed tissue or PAP/DQ stained slides are incubated with monoclonal/polyclonal antibodies/oligonucleotide probes. Localization is made via biotin free immunoperoxidase method. Appropriate controls are performed and reacted as expected. Results on target cell population are indicated in the following table: RESULTS: ANTIBODY / CLONE RESULT Block B H Pylori (polyclonal) negative These tests were developed and their performance characteristics determined by [facility]. They may not have been cleared or approved by the U.S. Food and Drug Administration. The FDA has determined that such clearance or approval is not necessary. The above immunohistochemical/dualISH markers are ordered and reviewed by the Pathologist. INTERPRETATION: B. Pylorus, biopsy: Negative for Helicobacter pylori organisms. AM:haroon 12/18/2023
--- NOTE | 2023-12-14 10:00 | EGD_PTH ---
PATHOLOGY RESULTS PATIENT: OSWALDO LARSEN LOC: EN U#:[id number] AGE/SX: 63/F ROOM: RE12/14/[address]: Dr. Edwin Frausto DO : 1960 BED: DIS: 12/14/2023 SPEC #: [id number] RECD: 12/14/23 13:21 STATUS: BRII RERyan #: [id number] EMERITA: 12/14/23 10:[address]: Edwin Frausto DEPT: SURGICAL PATHOLOGY RECD BY: Rissa De La Torre ENTERED: 12/14/23 13:42 SP TYPE: EGD BIOPSY OTHR DR: Dara Mcdonald DO Tissues: Duodenum, NOS Pylorus Gastric mucous membrane Esophagus, NOS Procedures: Special Stain Group II Surgery Specimen Level IV Alcian Blue/PAS (control) HEADER OPERATION: EGD with biopsy PRE-OP DIAGNOSIS: Bloating TISSUE SUBMITTED: A - Duodenum biopsy, B - Pylorus biopsy, C - Gastric body, D - Distal esophagus MICROSCOPIC DIAGNOSIS A. Duodenum, biopsy: Fragments of duodenal mucosa, nonspecific chronic inflammation. B. Gastric pylorus, biopsy: Mild chronic inflammation. See comment. C. Gastric body, biopsy: Mild chronic gastritis. D. Distal esophagus, biopsy: Fragments of gastric mucosa with mild chronic inflammation. No evidence of goblet cell metaplasia. See comment. AM:haroon 12/18/2023 COMMENT B. The results of immunohistochemistry for Helicobacter pylori will be reported separately ([id number]). D. Alcian blue/PAS stain with matched control supports the above diagnosis. MICROSCOPIC DESCRIPTION Slides are reviewed. GROSS DESCRIPTION A - Received in fixative is one container labeled with the patient's name and designated duodenum biopsy. The specimen consists of multiple irregular fragments of light meléndez soft tissue that in aggregate measure 1.0 x 0.3 x 0.1 cm. The specimen is totally submitted in one cassette. B - Received in fixative is one container labeled with the patient's name and designated pylorus biopsy. The specimen consists of two irregular fragments of light meléndez soft tissue that in aggregate measure 0.6 x 0.3 x 0.1 cm. The specimen is totally submitted in one cassette. C - Received in fixative is one container labeled with the patient's name and designated gastric body. The specimen consists of two irregular fragments of light meléndez soft tissue that in aggregate measure 0.6 x 0.5 x 0.1 cm. The specimen is totally submitted in one cassette. D - Received in fixative is one container labeled with the patient's name and designated distal esophagus. The specimen consists of multiple irregular fragments of light meléndez soft tissue that in aggregate measure 1.0 x 0.3 x 0.1 cm. The specimen is totally submitted in one cassette. 12/14/23 TC:3 CPT: 34567 x4, 31040
[2023-12-14 10:28] VITALS: BP 118/68; BP 94/41; PULSE 67; RESP 16; TEMP 37.1; O2SAT 96
[2023-12-14 10:30] VITALS: BP 118/68; BP 94/51; PULSE 73; RESP 18; O2SAT 98
--- NOTE | 2023-12-14 10:31 | OP.EGD_ITS ---
Patient Name: Mindi Orozco Procedure Date: 12/14/2023 10:10 AM Date of : 1960 Age: 63 Procedure: Upper GI endoscopy Indications: Epigastric abdominal pain Providers: Edwin Frausto DO Medicines: Monitored Anesthesia Care Patient Profile: This is a 63 year old female. Refer to note in patient chart for documentation of history and physical. Patient has symptoms of chronic abdominal cramping, chronic abdominal distention and acute epigastric abdominal pain. Complications: No immediate complications. Procedure: Pre-Anesthesia Assessment: - Prior to the procedure, a History and Physical was performed, and patient medications and allergies were reviewed. The patient is competent. The risks and benefits of the procedure and the sedation options and risks were discussed with the patient. All questions were answered and informed consent was obtained. Patient identification and proposed procedure were verified by the physician in the pre-procedure area. Mental Status Examination: alert and oriented. Airway Examination: normal oropharyngeal airway and neck mobility. Respiratory Examination: clear to auscultation. CV Examination: normal. Prophylactic Antibiotics: The patient does not require prophylactic antibiotics. Prior Anticoagulants: The patient has taken no anticoagulant or antiplatelet agents. ASA Grade Assessment: II - A patient with mild systemic disease. After reviewing the risks and benefits, the patient was deemed in satisfactory condition to undergo the procedure. The anesthesia plan was to use monitored anesthesia care (MAC). Immediately prior to administration of medications, the patient was re-assessed for adequacy to receive sedatives. The heart rate, respiratory rate, oxygen saturations, blood pressure, adequacy of pulmonary ventilation, and response to care were monitored throughout the procedure. The physical status of the patient was re-assessed after the procedure. After obtaining informed consent, the endoscope was passed under direct vision. Throughout the procedure, the patient's blood pressure, pulse, and oxygen saturations were monitored continuously. The Endoscope was introduced through the mouth, and advanced to the second part of duodenum. The upper GI endoscopy was accomplished without difficulty. The patient tolerated the procedure well. Scope In: 10:18:52 AM Scope Out: 10:24:09 AM Total Procedure Duration Time 0 hours 5 minutes 17 seconds Findings: The Z-line was irregular and was found 38 cm from the incisors. Biopsies were taken with a cold forceps for histology. Verification of patient identification for the specimen was done. Estimated blood loss was minimal. No gross lesions were noted in the entire examined stomach. Patchy moderately erythematous mucosa without bleeding was found in the gastric antrum and in the prepyloric region of the stomach. No gross lesions were noted in the first portion of the duodenum. Impression: - Z-line irregular, 38 cm from the incisors. Biopsied. - No gross lesions in the entire stomach. - Erythematous mucosa in the antrum and prepyloric region of the stomach. - No gross lesions in the first portion of the duodenum. Recommendation: - Discharge patient to home. - Clear liquid diet daily. - Continue present medications. - Discharge patient to home. Procedure Code(s): --- Professional --- 24130, Esophagogastroduodenoscopy, flexible, transoral; with biopsy, single or multiple CPT copyright 2021 [employer]. All rights reserved. The codes documented in this report are preliminary and upon pipe fitter review may be revised to meet current compliance requirements. Edwin Frausto DO 12/14/2023 10:30:49 AM This report has been signed electronically. Number of Addenda: 0 Note Initiated On: 12/14/2023 10:10 AM
--- NOTE | 2023-12-14 10:31 | OP.CCLET_ITS ---
12/14/2023 Dara Mcdonald Do Re : Upper GI endoscopy procedure for Mindi Orozco Dear Harry This procedure was performed on November. My impressions and recommendations are as follows: Impressions : - Z-line irregular, 38 cm from the incisors. Biopsied. - No gross lesions in the entire stomach. - Erythematous mucosa in the antrum and prepyloric region of the stomach. - No gross lesions in the first portion of the duodenum. Recommendations : - Discharge patient to home. - Clear liquid diet daily. - Continue present medications. - Discharge patient to home. My findings are described in the full procedure note, which is enclosed. If I can be of further assistance, please feel free to contact me at . Sincerely, Edwin Frausto, 12/14/2023 10:30:49 AM This report has been signed electronically.
[2023-12-14 10:35] VITALS: BP 118/68; BP 94/56; PULSE 63; RESP 18; O2SAT 100
[2023-12-14 10:40] VITALS: BP 118/68; BP 95/62; PULSE 69; RESP 16; TEMP 36.4; O2SAT 100
[2023-12-14 11:00] VITALS: BP 118/68
== END 2023-12-14 11:09 | disposition home or self-care (01) ==
LOC: EN 08:20 → AC 08:21
PROVIDERS: PCP Family Medicine; Referring Provider Internal Medicine Gastroenterology; Visit Provider Internal Medicine Gastroenterology
PROC: 0DJ08ZZ Inspection of Upper Intestinal Tract, Via Natural or Artificial Opening Endoscopic (ICD-10-PCS; CPT 43235; principal; 2023-12-14 09:55)
DX: K31.89 Other diseases of stomach and duodenum (principal); K29.50 Unspecified chronic gastritis without bleeding; R10.13 Epigastric pain
CPT/HCPCS: 43239; 88305; 88313; 88342; J7120; J2405

== ENCOUNTER → 2024-01-05 | Outpatient (CLI) | payer OTHER, SELFPAY ==
--- OUTSIDE RECORDS SUMMARY | 2024-01-05 06:06 | XMS RPT_ITS | CCD ---
Author Name Unknown Address [address] [place] [address] Organization [facility] Care Team Providers Care Transit Man Name Role Phone Lavonne ROGERS, Nilda Vera Unavailable Unavailable SUE Leggett RN, Josselyn Vera Unavailable Unavailivette Leggett RN RN, Josselyn Vera Unavailable Unavailivette Reaves KEY ACCOUNT REPRESENTATIVE, Reyna Caballero Unavailable SUE Leggett RN, Josselyn Vera Unavailable UnavailJOSE Perez Unavailable Unavailab le PROVIDER, UNKNOWN Unavailable Unavailable MARIVEL ANTHONY Unavailable Unavailable PROVIDER, UNKNOWN Unavailable Unavailable Vu Lopez Unavailable Unavailable Medications Completed/Discontinued Medications Medication Drug Class(es) Dates Sig (Normalized) Sig (Original) aspirin 81 mg oral tablet (14 sources) Nonsteroidal Anti-inflammatory Drug Start: 10-15-2015 take 1 tablet by mouth once daily ASPIRIN 81 MG TABS One tablet by mouth daily ASPIRIN [id number] Yusuf Perez MD Problems Active Problems Problem Classification Problem Date Documented Date Episodic/Chronic Heart valve disorders (14 sources) Mitral valve prolapse; Translations: [Nonrheumatic mitral (valve) prolapse] Onset: 10-09-2015 10-09-2015 Chronic Joint disorders and dislocations; trauma-related (7 sources) Unspecified internal derangement of right knee; Translations: [Unspecified internal derangement of right knee] Onset: 11-28-2016 12-02-2016 Chronic Menopausal disorders (7 sources) Postmenopausal bleeding; Translations: [Postmenopausal bleeding] Onset: 05-24-2017 05-24-2017 Chronic Other connective tissue disease (9 sources) Prepatellar bursitis, right knee; Translations: [Trochanteric bursitis, right hip] Onset: 11-28-2016 12-02-2016 Episodic Unclassified (4 sources) Screening mammography ; Translations: [Encounter for screening mammogram for malignant neoplasm of breast] Onset: 09-12-2017 09-12-2017 Past or Other Problems Problem Classification Problem Date Documented Date Episodic/Chronic Cardiac dysrhythmias (7 sources) Palpitations; Translations: [Palpitations] Onset: 10-09-2015 10-09-2015 Episodic Nonspecific chest pain (7 sources) Tight chest; Translations: [Other chest pain] Onset: 10-15-2015 10-15-2015 Episodic Other circulatory disease (7 sources) Abnormal electrocardiogram [ECG] [EKG]; Translations: [Abnormal electrocardiogram [ECG] [EKG]] Onset: 10-09-2015 10-09-2015 Episodic Other non-traumatic joint disorders (7 sources) Knee pain; Translations: [Pain in right knee] Onset: 11-28-2016 11-28-2016 Episodic Unclassified (7 sources) FH: Hypertension; Translations: [Family history of ischemic heart disease and other diseases of the circulatory system] 10-15-2015 Episodic Results Test Name Value Interpretation Reference Range [facility] Vital Signs Date Time Vital Sign Value Performing Clinician Facility 05-24-2017 11:27-0400 BMI (Body Mass Index) 22.93 kg/m2 Reyna Reaves [facility] 05-24-2017 11:27-0400 Body Temperature 98.2 [degF] Reyna Reaves [facility] 05-24-2017 11:27-0400 BP Diastolic 70 mm[Hg] Reyna Reaves [facility] 05-24-2017 11:27-0400 BP Systolic 102 mm[Hg] Reyna Reaves [facility] 05-24-2017 11:27-0400 Height 152.4 cm Reyna Reaves [facility] 05-24-2017 11:27-0400 Pulse (Heart Rate) 65 /min Reyna Reaves [facility] 05-24-2017 11:27-0400 Respiratory Rate 16 /min Reyna Reaves [facility] 05-24-2017 11:27-0400 Weight 53.25 kg Reyna Reaves [facility] 12-12-2016 14:29-0500 BSA (Body Surface Area) 1.49 m2 Reyna Reaves NP [facility] Encounters Encounter Date Encounter Type Care Provider Facility Start: 05-04-2018 Patient encounter MARIVEL [facility] Start: 04-17-2018 Patient encounter JOSE LORD [facility] Procedures Date Procedure Procedure Detail Performing Clinician Start: 12-05-2017 End: 12-05-2017 *Hepatic Function Panel Yusuf Perez MD Start: 12-05-2017 End: 12-05-2017 Lipid panel [AGGREGATE] Yusuf Perez MD Start: 09-12-2017 End: 11-09-2017 Mammogram, screening Reyna Reaves KEY ACCOUNT REPRESENTATIVE Work Phone: Start: 05-24-2017 End: 05-24-2017 Endometrial bx w/wo endocervix bx w/o dilat spx Reyna Reaves KEY ACCOUNT REPRESENTATIVE Work Phone: Start: 05-24-2017 End: 11-09-2017 Biopsy of uterus lining Reyna Federico Jean Paul KEY ACCOUNT REPRESENTATIVE Work Phone: Start: 12-12-2016 End: 01-04-2017 *Hepatic Function Panel Yusuf Perez MD Start: 12-12-2016 End: 12-12-2016 Follow Up Appt 1 year Yusuf Crowell Start: 12-12-2016 End: 01-04-2017 Lipid 1996 panel - Serum or Plasma Yusuf Perez MD Start: 12-12-2016 End: 12-12-2016 PFM Yusuf Perez MD Start: 12-12-2016 End: 01-04-2017 *Hepatic Function Panel Yusuf Perez MD Start: 12-12-2016 End: 12-12-2016 Follow Up Appt 1 year Yusuf Crowell Start: 12-12-2016 End: 03-08-2017 Lipid panel [AGGREGATE] Yusuf Perez MD Start: 12-12-2016 End: 12-12-2016 PFM Ysuuf Perez MD Start: 12-03-2015 End: 12-03-2015 Follow Up Appt 1 year Danitza morales, PA-C Work Phone: Start: 12-03-2015 End: 12-03-2015 PFM VERA DavisC Work Phone: Start: 12-03-2015 End: 12-03-2015 Follow Up Appt 1 year Danitza morales, VERAC Work Phone: Start: 12-03-2015 End: 12-03-2015 PFM VERA DavisC Work Phone: Start: 10-15-2015 End: 10-19-2015 *BMP Yusuf Perez MD Start: 10-15-2015 End: 10-19-2015 *Hepatic Function Panel Yusuf Perez MD Start: 10-15-2015 End: 10-19-2015 CBC W Auto Differential panel - Blood Yusuf Perez MD Start: 10-15-2015 End: 10-15-2015 Ecg routine ecg w/least 12 lds w/i&r Yusuf Perez MD Start: 10-15-2015 End: 11-27-2015 Echocardiography Yusuf Perez MD Start: 10-15-2015 End: 10-15-2015 Follow Up Appt 6 weeks Yusuf Perez MD Start: 10-15-2015 End: 10-19-2015 Lipid 1996 panel - Serum or Plasma Yusuf Perez MD Start: 10-15-2015 End: 10-15-2015 MMM Yusuf Perez MD Start: 10-15-2015 End: 10-19-2015 Thyrotropin [Units/volume] in Serum or Plasma Yusuf Perez MD Start: 10-15-2015 End: 10-19-2015 Thyroxine (T4) [Mass/volume] in Serum or Plasma Yusuf Perez MD Start: 10-15-2015 End: 11-02-2015 Us abdominal real time w/image limited Yusuf Perez MD Start: 10-15-2015 End: 10-19-2015 *BMP Yusuf Perez MD Start: 10-15-2015 End: 10-19-2015 *Hepatic Function Panel Yusuf Perez MD Start: 10-15-2015 End: 10-19-2015 CBC W Auto Differential panel - Blood Yusuf Perez MD Start: 10-15-2015 End: 11-02-2015 Echo exam of abdomen Yusuf Perez MD Start: 10-15-2015 End: 11-27-2015 Echocardiography Yusuf Perez MD Start: 10-15-2015 End: 10-15-2015 Electrocardiogram, complete Yusuf pitts MD Start: 10-15-2015 End: 10-15-2015 Follow Up Appt 6 weeks Yusuf Perez MD Start: 10-15-2015 End: 10-19-2015 Lipid panel [AGGREGATE] Yusuf Perez MD Start: 10-15-2015 End: 10-15-2015 MMM Yusuf Perez MD Start: 10-15-2015 End: 10-19-2015 Thyroid stimulating hormone (TSH) Yusuf Perez MD Start: 10-15-2015 End: 10-19-2015 Thyroxine (T4) Yusuf Perez MD Plan of Treatment Date Care Activity Detail Author Start: 01-04-2018 End: 01-12-2017 *Hepatic Function Panel *Hepatic Function Panel [facility] Start: 01-04-2018 End: 01-12-2017 Lipid panel [AGGREGATE] *Lipid Profile CC PCP [facility] Start: 01-04-2018 End: 12-05-2017 *Hepatic Function Panel *Hepatic Function Panel [facility] Start: 01-04-2018 End: 12-05-2017 Lipid panel [AGGREGATE] *Lipid Profile CC PCP [facility] Start: 12-11-2017 End: 12-11-2017 Appointment Appointment [facility] Start: 10-02-2017 End: 10-02-2017 Appointment Appointment [facility] Start: 09-12-2017 End: 09-12-2017 Mammogram, screening Mammogram, Screening, both breasts [facility] Start: 09-12-2017 End: 11-09-2017 Mammogram, screening Mammogram, Screening, both breasts [facility] Start: 07-18-2017 End: 07-18-2017 Appointment Appointment [facility] Start: 05-24-2017 End: 05-24-2017 Endometrial bx w/wo endocervix bx w/o dilat spx Endometrial Biopsy [facility] Start: 05-24-2017 End: 05-24-2017 Appointment Appointment [facility] Start: 05-24-2017 End: 11-09-2017 Biopsy of uterus lining Endometrial Biopsy [facility] Start: 12-12-2016 End: 01-04-2017 *Hepatic Function Panel *Hepatic Function Panel [facility] Start: 12-12-2016 End: 12-12-2016 Follow Up Appt 1 year Follow Up Appt 1 year [facility] Start: 12-12-2016 End: 01-04-2017 Lipid panel [AGGREGATE] *Lipid Profile CC PCP [facility] Start: 12-12-2016 End: 12-12-2016 PFM PFM [facility] Start: 12-12-2016 End: 01-04-2017 *Hepatic Function Panel *Hepatic Function Panel [facility] Start: 12-12-2016 End: 12-12-2016 Follow Up Appt 1 year Follow Up Appt 1 year [facility] Start: 12-12-2016 End: 01-04-2017 Lipid panel [AGGREGATE] *Lipid Profile CC PCP [facility] Start: 12-12-2016 End: 12-12-2016 PFM PFM [facility] Start: 11-28-2016 End: 11-28-2016 Radiologic exam knee complete 4/more views X-Ray, Knee [facility] Start: 11-28-2016 End: 11-28-2016 X-ray exam, knee, 4 or more X-Ray, Knee [facility] Start: 12-03-2015 End: 12-03-2015 Follow Up Appt 1 year Follow Up Appt 1 year [facility] Start: 12-03-2015 End: 12-03-2015 PFM PFM [facility] Start: 12-03-2015 End: 12-03-2015 Follow Up Appt 1 year Follow Up Appt 1 year [facility] Start: 12-03-2015 End: 12-03-2015 PFM PFM [facility] Start: 10-15-2015 End: 10-19-2015 *BMP *BMP [facility] Start: 10-15-2015 End: 10-19-2015 *Hepatic Function Panel *Hepatic Function Panel [facility] Start: 10-15-2015 End: 10-19-2015 CBC W Auto Differential panel - Blood *CBC without Diff [facility] Start: 10-15-2015 End: 10-15-2015 Ecg routine ecg w/least 12 lds w/i&r EKG (In office) [facility] Start: 10-15-2015 End: 10-15-2015 Echocardiography Echocardiogram (complete) [facility] Start: 10-15-2015 End: 10-15-2015 Follow Up Appt 6 weeks Follow Up Appt 6 weeks [facility] Start: 10-15-2015 End: 10-19-2015 Lipid panel [AGGREGATE] *Lipid Profile CC PCP [facility] Start: 10-15-2015 End: 10-15-2015 MMM MMM [facility] Start: 10-15-2015 End: 10-19-2015 Thyroid stimulating hormone (TSH) *TSH [facility] Start: 10-15-2015 End: 10-19-2015 Thyroxine (T4) *T4 (Total) [facility] Start: 10-15-2015 End: 10-15-2015 Us abdominal real time w/image limited US Abdominal (aneurysm screening) [facility] Start: 10-15-2015 End: 10-15-2015 Xtrnl mobile cv telemetry w/i&report 30 days 30 Day Holter Monitor [facility] Start: 10-15-2015 End: 10-19-2015 *BMP *BMP [facility] Start: 10-15-2015 End: 10-19-2015 *Hepatic Function Panel *Hepatic Function Panel [facility] Start: 10-15-2015 End: 10-19-2015 CBC W Auto Differential panel - Blood *CBC without Diff [facility] Start: 10-15-2015 End: 10-15-2015 Echo exam of abdomen US Abdominal (aneurysm screening) [facility] Start: 10-15-2015 End: 10-15-2015 Echocardiography Echocardiogram (complete) [facility] Start: 10-15-2015 End: 10-15-2015 Electrocardiogram, complete EKG (In office) [facility] Start: 10-15-2015 End: 10-15-2015 Follow Up Appt 6 weeks Follow Up Appt 6 weeks [facility] Start: 10-15-2015 End: 10-19-2015 Lipid panel [AGGREGATE] *Lipid Profile CC PCP [facility] Start: 10-15-2015 End: 10-15-2015 MMM MMM [facility] Start: 10-15-2015 End: 10-15-2015 Remote 30 day ecg rev/report 30 Day Holter Monitor [facility] Start: 10-15-2015 End: 10-19-2015 Thyroid stimulating hormone (TSH) *TSH [facility] Start: 10-15-2015 End: 10-19-2015 Thyroxine (T4) *T4 (Total) [facility] Patient Education [facility] Payers Date Payer Category Payer Policy ID Unknown Summary Purpose Family History No Family History Records Found Advance Directives No Advanced Directives Records Found Additional Source Comments INFORMATION SOURCE (unrecogn ized section and content) FOR RECORDS PERTAINING TO PATIENTS WHO ARE OR HAVE BEEN ENROLLED IN A CHEMICAL DEPENDENCY/SUBSTANCEABUSE PROGRAM, SOME INFORMATION MAY BE OMITTED. This clinical summary was aggregated from multiple sources. Caution should be exercised in using it in the provision of clinical care. This summary normalizes information from multiple sources, and as a consequence, information in this document may materially change the coding, format and clinical context of patient data. In addition, data may be omitted in some cases. CLINICAL DECISIONS SHOULD BE BASED ON THE PRIMARY CLINICAL RECORDS. [facility] [employer] [facility]. provides no warranty or guarantee of the accuracy or completeness of information in this document.
[2024-01-05 07:56] LABS: Lipase 67 U/L (13-75)
[2024-01-05 08:12] LABS: Anion Gap 5 (5-15); BUN 25 mg/dL (7-18); BUN/Creat Ratio 27.8 RATIO (10-20); Calcium,Total 9.1 mg/dL (8.5-10.1); Chloride 111 mmol/L (98-107); EST Glomerular Filtration Rate 68 mL/min (>60); Est Glom Filt Rate - Afr Amer 82 mL/min (>60); Glucose 96 mg/dL (74-106); Sodium Level 143 mmol/L (136-145)
== END | disposition home or self-care (01) ==
LOC: LAB 06:03
PROVIDERS: Internal Medicine Gastroenterology; PCP Family Medicine; Referring Provider Nurse Practitioner Family; Visit Provider Nurse Practitioner Family
DX: R14.0 Abdominal distension (gaseous) (principal); Z13.1 Encounter for screening for diabetes mellitus
CPT/HCPCS: 36415; 80048; 83690

== ENCOUNTER → 2024-01-29 | Outpatient (CLI) | payer OTHER, SELFPAY ==
--- NOTE | 2024-01-29 07:26 | BI_ITS ---
MAMMOGRAPHY - BILATERAL SCREENING REASON FOR EXAM: Female, 63 years old. Routine annual screening examination. PERTINENT HISTORY: Non-contributory. TECHNIQUE: Digital bilateral breast melinda (3D mammographic acquisition) in the CC and MLO projections. 2-D mediolateral oblique (MLO) and craniocaudad (CC) views of both breasts were obtained. CAD: Full Field Digital Mammography with Computer Added Detection was performed. COMPARISON: Comparison is made with prior study dated January 18, 2023 and January 17, 2022. FINDINGS: Breast Composition: There are scattered areas of fibroglandular density. There are no dominant masses or suspicious calcifications. No other significant abnormalities are identified. There has been no significant change since the prior study. BI/SCRN MAMM (CAD)W/MELINDA BILAT IMPRESSION: Stable bilateral screening mammogram. Yearly follow-up mammogram recommended. (A) ASSESSMENT CATEGORY: BIRADS Category 1: Negative. A letter regarding these results will be sent to the patient by the facility within 30 days. Approximately 10% of breast cancers are not detected by mammography. A normal mammogram should not delay biopsy of a clinically suspicious abnormality. [id number] Electronically Signed: Jf Goetz MD at 8:59 EDT ,
== END | disposition home or self-care (01) ==
LOC: OPBI 07:26
PROVIDERS: PCP Family Medicine; Referring Provider Nurse Practitioner Women's Health; Visit Provider Nurse Practitioner Women's Health
DX: Z12.31 Encounter for screening mammogram for malignant neoplasm of breast (principal)
CPT/HCPCS: 77063; 77067

== ENCOUNTER → 2024-10-31 | Outpatient (CLI) | payer OTHER, SELFPAY ==
--- NOTE | 2024-10-31 13:12 | RAD_ITS ---
STUDY: X-RAY - LEFT WRIST REASON FOR EXAM: Female, 64 years old. Left wrist pain since June. Feels pulling from pinky down into wrist. TECHNIQUE: 3 views of the left wrist were obtained. COMPARISON: None. FINDINGS: Normal visualized distal radius and ulna. Normal radiocarpal articulation. Normal distal radioulnar articulation. Normal carpal bones. Normal carpal articulations. There is mild degenerative arthrosis of the carpometacarpal articulation of the thumb. Normal second through fifth carpometacarpal articulations. Normal visualized metacarpal bones. The soft tissue structures are unremarkable. 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 Electronically Signed: Kristofer Shields MD at 16:06 EST ,
== END | disposition home or self-care (01) ==
PROVIDERS: PCP Family Medicine; Referring Provider Family Medicine; Visit Provider Family Medicine
DX: S69.92XA Unspecified injury of left wrist, hand and finger(s), initial encounter (principal); X58.XXXA Exposure to other specified factors, initial encounter
CPT/HCPCS: 73110

== ENCOUNTER 2024-12-12 15:00 | Outpatient (RCR) | payer OTHER, SELFPAY ==
--- NOTE | 2024-11-21 15:56 | HP.OTEVAL_ITS ---
Patient's Visit Information Visit Information Visit Information: OSWALDO LARSEN is a 64 year old F, referred to Occupational Therapy by Dorene Aguilar MD, with a diagnosis of L wrist injury. Date of Evaluation: 11/21/24 Occupational Therapist: Elizabeth Louis Subjective Subjective: This 64 year old female arrives with dx of B wrist pain. X ray complete no fx evident does reveal L hand CMC mild degeneration. Pt states majority of her pain in on the ulnar side of wrist. pt states it started in june after feeling pull in exercise class completing row movement. pt did wear wrist brace on L side for a while states it helped for awhile however then made things worse with some tingling. Pt states the pain has started to feel better no longer wearing her brace from home however certain movements will trigger the pain. pt is R handed and works pt is very active and uses hands a lot throughout the day. Pain L wrist: Current Pain Intensity: 0 Pain Intensity Range: 5 Objective Objective/Observation: pt arrives no brace no swelling noted of L wrist. skin intact. pt is able to demo multi positions only provoking pain occasionally mostly when in UD as well as wrist flex/ext ROM Shoulder: wfl Elbow: wfl Forearm: wfl Wrist: L 65/65 R 65/65 MP: L 50 R 55 IP: L 50 R 55 Radial Abduction: wfl Opposition: wfl d5 ROM Comments: able to make full composite fist with B hands Strength Logistics Planner: L 55# R 65# Lateral Pinch: L 8# R 10# Tripod Pinch: L 8# R 8# Strength Comments: pain with tripod pinch Edema Wrist: L 15 cm R 14.5 cm Sensation Sensation Comments: every once and while occ tingling states it is positional Quick DASH-Disab of Arm,Shoulder& Hand Quick DASH Score: 13.6350 Goals Goal:Logistics Planner/Pinch strength at least 75% of unaffected hand: Yes Goal:No pain with affected hand use: Yes Goal:Full use of affected hand in daily activities including work: Yes Comment: quick dash Other Goal: pt will improve quick dash score by 3 points or more in order to improve functional use of L hand during day to day tasks pt will verbalize/ demonstrate 100% accuracy in proper joint protection and positioning to decrease pain by discharge pt will verbalize/ demonstrate 100% accuracy in proper bracing options to decrease pain increase functional use Rehabilitation General Assessment: This 64 year old female arrives with dx of L wrist injury and pain. pt with pain when performing certain motions mostly UD combined with wrist flex/ext. pt is tender to palpate at the FCU. pt cargo handler strength in L slightly less 10# difference compare to non affected side. pt would benefit from OT services 1x a week for 3 weeks in order to provide ed and training on joint protection and positioning, bracing, wrist stability exercises as well as modality for pain management. Rehabilitation Potential: Good Anticipated Interventions Anticipated Interventions: A/AAROM/PROM, Strengthening, Triggerpoint Release, Modalities, Orthoses, Joint Protection/Energy Conservation, Ergonomic Education and Home Program Visit Plan Frequency: 1x/Week Duration: 3 Weeks General Plan: wrist stability bracing (wrist widget or bullseye) modality for pain management joint protection and positioning TEXT: Thank you for the opportunity to evaluate your patient. For Medicare and Medicare HMO plans, please review the plan of care and approve it. It will need to be FAXED BACK to us at [phone] for Medicare purposes. Please let me know if there are questions or concerns regarding this plan of care. Physician Signature: Da te:
--- NOTE | 2024-12-12 15:37 | HP.OTDCSUM_ITS ---
Discharge Summary D/C Summary: It has been my pleasure to treat OSWALDO LARSEN under orders from Dorene Aguilar MD, for the diagnosis of L wrist injury for a total of 4 visit(s). Please see the following information for a summary of their discharge status. 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 50# L hand lateral pinch 8# L tripod pinch 10# Goals Patient Goals: Regain Strength, Decrease Pain, Decrease Swelling/Stiffness, Use Hand/Wrist/Arm Normally Again, Resume Former Household Responsibilities (Cooking,Cleaning,Yard, etc.) and Resume Hobbies Goal:Furniture Upholsterer/Pinch strength at least 75% of unaffected hand: Yes Goal Progress: not met Goal:No pain with affected hand use: Yes Goal Progress: occ pain certain position Goal:Full use of affected hand in daily activities including work: Yes Goal Progress: Goal Met Other Goal: pt will improve quick dash score by 3 points or more in order to improve functional use of L hand during day to day tasks GOAL MET pt will verbalize/ demonstrate 100% accuracy in proper joint protection and positioning to decrease pain by discharge GOAL MET pt will verbalize/ demonstrate 100% accuracy in proper bracing options to decrease pain increase functional use GOAL MET Plan Plan: wrist stabilization bracing D/C Information Discharge Comments: This 64 year old female seen by OT for dx of wrist pain. pt progressed in POC with increased carryover and knowledge in joint positioning as well as protection. pt now has brace to assist in stabilization during functional tasks. discharge at this time with pt to continue exercises at home. d/c sentence: If there are questions or concerns regarding this patient's occupational therapy, please fell free to call me at [phone]. Thank you for the referral of this patient. Sincerely, Elizabeth Louis
--- NOTE | 2024-12-12 15:38 | HP.OT.NRP ---
Patient Information Patient Information: OSWALDO LARSEN was seen in my office for initial evaluation on 11/21/24. The following Plan of Care was established for this patient: POC Established Initial Frequency: 1x/Week Initial Duration: 3 Weeks Plan: wrist stabilization bracing Anticipated Interventions Anticipated Interventions: A/AAROM/PROM, Strengthening, Triggerpoint Release, Modalities, Orthoses, Joint Protection/Energy Conservation, Ergonomic Education and Home Program Last Seen Last Seen: This patient was last seen in our office 12/12/24. Pertinent comments regarding their Occupational therapy will appear below: This 64 year old female seen by OT for dx of wrist pain. pt progressed in POC with increased carryover and knowledge in joint positioning as well as protection. pt now has brace to assist in stabilization during functional tasks. discharge at this time with pt to continue exercises at home. At this point I will be discontinuing this patient from occupational therapy. I would be happy to see this patient again in the future if found appropriate by the physician. Thank you! Elizabeth Louis
== END 2024-12-12 19:00 | disposition home or self-care (01) ==
LOC: OT 15:00
PROVIDERS: PCP Family Medicine; Referring Provider Family Medicine; Visit Provider Family Medicine
DX: S69.90XD Unspecified injury of unspecified wrist, hand and finger(s), subsequent encounter (principal)
CPT/HCPCS: 97035; 97166; 97530

== ENCOUNTER 2025-01-10 06:21 | Outpatient (CLI) | payer OTHER, SELFPAY ==
[2025-01-10 07:09] LABS: Absolute Lymphocyte Count 1.66 X10^3/uL (0.83-4.51); Absolute Neutrophil Count 2.4 X10^3/uL (2.0-7.7); Basophil# 0.04 X10^3/uL; Basophil% 0.9 % (0-1); Eosinophils% 2.2 % (0-5); Hematocrit 40.6 % (37-47); Hemoglobin 13.4 g/dL (12.0-15.0); Lymphocyte # 1.66 X10^3/ul (0.83-4.51); Lymphocyte % 36.2 % (19-41); Mean Corpuscular Hgb 30.7 pg (27.0-32.0); Mean Corpuscular Volume 93.1 fL (81-99); Mean Platelet Vol. 9.5 fl (6.2-12.0); Monocyte# 0.41 X10^3/uL; NRBC Flagged by Analyzer 0 % (0-5); Neutrophil # 2.37 X10^3/uL (2.7-7.7); Neutrophil % 51.7 % (47-70); Platelet Count 291 K/mm3 (150-450); RBC Distribution Width CV 12.3 % (11.6-14.6); RBC Distribution Width SD 42.5 fl (35.1-43.9); Red Blood Count 4.36 M/mm3 (4.2-5.4); White Blood Count 4.6 K/mm3 (4.4-11.0)
[2025-01-10 08:39] LABS: ALB/GLOB Ratio 1.7 RATIO (0.9-2.4); AST(SGOT) 22 U/L (<=31); Alanine Aminotransfer ALT/SGPT 12 U/L (<=34); Albumin, Serum 4.2 g/dL (3.4-4.8); Alkaline Phosphatase 47 U/L (35-104); Anion Gap 11 (5-15); BUN 22 mg/dL (4-19); BUN/Creat Ratio 28.2 RATIO (10-20); Calcium,Total 9.4 mg/dL (7.6-11.0); Chloride 107 mmol/L (98-108); Cholesterol 191 mg/dL (<=200); Creatinine, Serum 0.76 mg/dL (0.70-1.20); EST Glomerular Filtration Rate 88 (>60); Globulin 2.5 g/dL (2.2-4.2); Glucose 100 mg/dL (70-99); High Density Lipoprotein 78 mg/dL; Low Density Lipoprotein Calc. 101 mg/dL; Potassium 4.2 mmol/L (3.3-5.1); Protein, Total 6.7 g/dL (5.9-8.4); Sodium Level 142 mmol/L (133-145); Triglycerides 60 mg/dL; Very Low Density Lipoprotein 12 mg/dL (5-40); cholesterol:hdl ratio screen 2.45
[2025-01-10 09:41] LABS: Hemoglobin A1c 5.5 % (<=5.6)
== END 2025-01-10 23:59 | disposition home or self-care (01) ==
LOC: LAB 06:22
PROVIDERS: PCP Family Medicine; Referring Provider Family Medicine; Visit Provider Family Medicine
DX: Z00.00 Encounter for general adult medical examination without abnormal findings (principal); E78.00 Pure hypercholesterolemia, unspecified; R00.2 Palpitations
CPT/HCPCS: 36415; 80053; 80061; 83036; 85025

== ENCOUNTER → 2025-01-14 | Outpatient (CLI) | payer OTHER, SELFPAY ==
--- NOTE | 2025-01-14 17:08 | RAD_ITS ---
PROCEDURE: Cervical spine radiographs, 7 views 01/14/2025 REASON FOR EXAM: Neck/shoulder pain TECHNIQUE: 7 views of the cervical spine were obtained. COMPARISON: None available FINDINGS: 7 views of the cervical spine were obtained. On the neutral lateral projection, the cervical spine is imaged from the skull base through the C7-T1 interspace. There is grade 1 retrolisthesis of C4 relative to C5 and grade 1 anterolisthesis of C7 relative to T1 on the neutral lateral projection. No definite acute cervical vertebral body fracture. There is moderately extensive multilevel degenerative disc and facet disease in the cervical spine, greatest at C4-5 through C6-7. The prevertebral soft tissues are within normal limits. No evidence of significant instability on flexion and extension views. Mild right neural foraminal narrowing at C4-5, to a moderate degree at C6-7. Mild left neural foraminal narrowing at C6-7. The visualized odontoid process is grossly intact. RAD/Cerv Spine Obl/Flex/Ext Comp IMPRESSION: Osteopenia. No definite acute bony abnormality of the cervical spine. Moderately extensive multilevel degenerative disc and facet disease, with bilat eral neural foraminal narrowing, as described above. No evidence of significant instability on flexion and extension views. If there is persistent pain, short-term follow-up MRI evaluation may be conside red. Reading Location: [facility]
== END | disposition home or self-care (01) ==
LOC: MTRAD 17:06
PROVIDERS: PCP Family Medicine; Referring Provider Family Medicine; Visit Provider Family Medicine
DX: M54.2 Cervicalgia (principal)
CPT/HCPCS: 72052

== ENCOUNTER → 2025-01-29 | Outpatient (CLI) | payer OTHER, SELFPAY ==
--- NOTE | 2025-01-29 07:31 | BI_ITS ---
EXAM: SCRN MAMM (CAD)W/MELINDA BILAT 01/29/2025 CLINICAL HISTORY: F, Age 64 y/o , SCREENING TECHNIQUE: Bilateral screening digital breast tomosynthesis with 2D and 3D images. Computer aided detection. COMPARISON: Prior exam(s) dated 01/29/2024, 01/18/2023. FINDINGS: TISSUE DENSITY: The breast tissue is composed of scattered area of fibroglandular density. Bilateral Breast Mammographic Findings: No significant masses, calcifications or other abnormalities are identified. BI/SCRN MAMM (CAD)W/MELINDA BILAT IMPRESSION: Right Breast: BIRADS 1 NEGATIVE. Left Breast: BIRADS 1 NEGATIVE. OVERALL FINAL ASSESSMENT: BIRADS 1 NEGATIVE. RECOMMENDATION: Routine annual follow-up in 1 Year A letter with findings and recommendations will be mailed to the patient. Reading Location: [facility]
== END | disposition home or self-care (01) ==
LOC: OPBI 07:28
PROVIDERS: PCP Family Medicine; Referring Provider Nurse Practitioner Women's Health; Visit Provider Nurse Practitioner Women's Health
DX: Z12.31 Encounter for screening mammogram for malignant neoplasm of breast (principal)
CPT/HCPCS: 77063; 77067

== ENCOUNTER → 2025-02-26 | Outpatient (CLI) | payer OTHER, SELFPAY ==
--- NOTE | 2025-02-26 07:02 | CT_ITS ---
PROCEDURE: LIMITED CHEST CT CARDIAC ONLY REASON FOR EXAM: CP TECHNIQUE: CT for coronary artery calcification. One or more dose reduction techniques were used (e.g., Automated exposure control, adjustment of the mA and/or kV according to patient size, use of iterative reconstruction technique). COMPARISON: None. CT/Limited Chest CT Cardiac Only IMPRESSION: CT was performed for coronary artery calcium scoring. Limited imaging of the lungs demonstrates no acute disease. No pleural effusio n or pneumothorax is seen in visualized areas. No adenopathy is seen in visualized areas Reading Location: [place] [id number]
--- NOTE | 2025-02-26 09:13 | CA.SCORE ---
Calcium Scoring Date of Study:: 02/26/25 Indications Indications: cp Coronary Calcium Scoring: High-resolution Computed Tomographic imaging of the chest was performed on [ 02/26/25], with particular attention paid to the coronary arteries. Images from the examination were analyzed for the presence and extent of coronary artery calcification , using coronary calcium quantification software. The patient tolerated the procedure well and there were no complications. The results of the coronary calcification analysis are provided below. Findings Coronary Artery Left Main (LM): 0 Left Anterior Descending (LAD): 87 Left Circumflex (LCX): 0 Right Coronary Artery (RCA): 0 Total Agatston Score: 87 Percentile Rankin-90% Calcium Scoring Interpretation: Different methods to categorize the overall amount of coronary plaque. Overall amount CAC SIS Visual of coronary plaque P1 Mild -100 <2 1-2 vessels with mild amount of plaque P2 Moderate 101-300 3-4 1-2 vessels with moderate amount, 3 vessels with mild amount of plaque P3 Severe 301-999 5-7 3 vessels with moderate amount, 1 vessel with severe amount of plaque P4 Extensive >1000 >8 2-3 vessels with severe amount of plaque Calcium Score: Mild: 1-2 vessels w/mild amount of plaque Conclusion: Mild amount of plaque disease only noted.
== END | disposition home or self-care (01) ==
PROVIDERS: PCP Family Medicine; Referring Provider Internal Medicine Cardiovascular Disease; Visit Provider Internal Medicine Cardiovascular Disease
DX: R07.9 Chest pain, unspecified (principal)
CPT/HCPCS: 75571; 76380

== ENCOUNTER → 2025-03-19 | Outpatient (CLI) | payer OTHER, SELFPAY ==
--- NOTE | 2025-03-19 07:00 | MRI_ITS ---
PROCEDURE: SPINE CERVICAL (ROUTINE) 03/19/2025 REASON FOR EXAM: PAIN TECHNIQUE: T1, T2, stir, multiplanar and multisequence images were obtained without IV contrast administration. COMPARISON: January 14, 2025 x-ray FINDINGS: There is loss of the lordosis. There is grade 1 spondylolisthesis at C3-4, 0.3 cm. There is grade 1 retrolisthesis at C4-5, 0.3 cm. There is grade 1 retrolisthesis at C5-6, 0.25 cm. There is grade 1 spondylolisthesis at C7-T1, 0.4 cm. Vertebral body height is maintained. Vertebral body marrow signal is normal. The intervertebral disc signal shows desiccation. C2-C3: There is mild central and right paracentral disc and osteophyte protrusion. There is mild right lateral recess effacement. There is mild right foraminal narrowing secondary to disc and osteophyte protrusion. There is no central canal stenosis. C3-C4: There is moderate central, moderate right and mild left paracentral disc and osteophyte protrusion. There is mild right lateral recess effacement. There is moderate bilateral foraminal narrowing secondary to disc and osteophyte protrusion. There is mild central canal stenosis. C4-C5: There is moderate central and right and left paracentral disc and osteophyte protrusion. There is moderate bilateral lateral recess stenosis. There is moderate right and severe left foraminal narrowing secondary to disc and osteophyte protrusion and facet hypertrophy. There is mild central canal stenosis. C5-C6: There is moderate central and right and left paracentral disc and osteophyte protrusion. There is moderate right and severe left lateral recess stenosis. There is moderate right and left foraminal narrowing secondary to disc and osteophyte protrusion and facet hypertrophy. There is moderate central canal stenosis. C6-C7: There is moderate central and right and left paracentral disc and osteophyte protrusion. There is severe bilateral lateral recess stenosis. There is moderate right and severe left foraminal narrowing secondary to disc and osteophyte protrusion and facet hypertrophy. There is moderate central canal stenosis. C7-T1: There is mild central and right and left paracentral disc protrusion. There is no significant lateral recess stenosis. There is mild right foraminal narrowing secondary to disc and osteophyte protrusion and facet hypertrophy. There is mild central canal stenosis. The visualized cord shows normal signal characteristics. Adjacent soft tissues are grossly unremarkable. MRI/Spine Cervical (Routine) IMPRESSION: There is loss of the lordosis. There is grade 1 spondylolisthesis at C3-4, 0.3 cm. There is grade 1 retrolisth esis at C4-5, 0.3 cm. There is grade 1 retrolisthesis at C5-6, 0.25 cm. There is grade 1 spondylolisthesis at C7-T1, 0 .4 cm. There is mild central canal stenosis at C3-4, C4-5, moderate central canal sten osis at C5-6 and C6-7, with mild central canal stenosis at C7-T1, with lateral recess and foraminal narrowing. Reading Location: [facility]
== END | disposition home or self-care (01) ==
PROVIDERS: PCP Family Medicine; Referring Provider Student in an Organized Health Care Education/Training Program; Visit Provider Student in an Organized Health Care Education/Training Program
DX: M50.30 Other cervical disc degeneration, unspecified cervical region (principal); M43.12 Spondylolisthesis, cervical region
CPT/HCPCS: 72141

== ENCOUNTER 2025-09-24 12:00 | Outpatient (RCR) | payer BC, SELFPAY ==
--- NOTE | 2025-08-28 16:03 | HP.PTEVAL_ITS ---
Patient's Visit Information Visit Information Visit Information: OSWALDO LARSEN is a 64 year old F referred to Physical Therapy by Dr. Davis Jensen MD with a diagnosis of Cervical DDD. Date of Evaluation: 08/25/25 Physical Therapist: Gigi Corral DPT Visit Plan Frequency: 2x /Week Duration: 4 Weeks Plan: Start with extension progression, retraction with extension. Progressing forces as able. Subjective Subjective: Pt. is here today for her initial evaluation with diagnosis of cervical degenerative disc disease, spondylolisthesis. Pt. reports pain is mostly on the L side. Pt. reports pain has been present since 2021. At that point in time she had injections with which helped, but now is much worse. Pt. is able to complete most activities, but does have pain with them. Pt. reports doing some strength training. Pt. reports adjusting her work outs due to her pain. Pt. reports mornings are about the same. She did PT prior with traction an d distraction. She has held off these exercises more recently. Pt. is hopeful to reduce symptoms in order to get back to all recreational activities and ADLs. Pain Cervical spine: Pain Intensity (Out of 10): 2 Pain Intensity Range: 0 and 2 Comment: L side Objective Objective: POSTURE: Very slight forward head postuer PALPATION: pt. has tenderness on the L side of her cervical spine L2-L5. L UT t enderness as well. NEURO: normal throughout. ROM: Cervical spine: flexion nil loss NE, ext min loss mild increase NW on L side. SB min loss bilat (stiffness), rotation L min loss increase NW, rotation R NE min loss. B shoulder ROM normal throughout. MMT: 5/5 throughout. 4/5 deep neck flexors, 4/5 cervical extensors. Pt. had + relief with PAs during cervical extension. retraction was also helpful with extension being the comparable sign. Balance/Special Test Scores Oswestry Neck Score: 8 Goals Goal 1:: LTG: Pt. to have full cervical extension and rotation without increase in L sided cervical spine pain. Goal Time Frame: 4-6 Weeks Goal 2:: LTG: Pt. to have 5/5 cervical spine strength. Goal Time Frame: 4-6 Weeks Goal 3:: LTG: Pt. to complete cervical endurance testing with holding 1 min. Goal 4:: LTG: pt. ot have no pain with all ADLs. Rehabilitation Potential Physical Therapy Diagnosis: Pt. has signs and symptoms consistent with cervical DDD. Pt. has slight hypomobility, increased pain at L lateral cervical spine. Pt. would benefit from PT to address the above limitations progressing back to all recreational activities. Rehabilitation Potential: Excellent Anticipated Interventions Patient/Client Instruction: Educate patient on: Condition, Plan of Care, Risk Factors and Benefits of Fitness Program For the Purpose of:: To foster healthy habits, To improve decision making, To facilitate caregiver knowledge, To improve self management, To prevent re-injury and To improve ability to perform tasks related to life management Therapeutic Exercise to Include: Strength training, Power training, Endurance training, Postural training, Flexibilty training, Passive ROM and Active ROM For the Purpose of:: To decrease pain, To decrease swelling/inflammation, To increase ROM, To improve nutrient delivery to tissue, To improve muscle performance and motor function, To improve ability to perform ADL's, To increase tolerance to activity/condition/position, To improve performance and independence with ADL's, To improve health of tissue and To decrease soft tissue restriction Manual Therapy Techniques to Include: Mobilization, Passive ROM and Soft tissue mobilization For the Purpose of:: To decrease pain, To decrease swelling/inflammation, To increase ROM and To improve ability to perform ADL's Text: Thank you for the opportunity to evaluate your patient. For Medicare and Medicare HMO plans, please review the plan of care and approve it. It will need to be FAXED BACK to us at [phone] for Medicare purposes. For Medicare only, by signing this I certify the plan of care. Please let me know if there are questions or concerns regarding this plan of care. Physician Signature: Date:
--- NOTE | 2025-09-24 13:42 | HP.PTDCSUM ---
Discharge Summary D/C summary: It has been my pleasure to treat OSWALDO LARSEN referred by Dr. Davis Jensen MD, with the diagnosis of Cervical DDD for a total of 10 visit(s). Discharge Date: 09/24/25 Please see the following information for a summary of their discharge status. Subjective Subjective: Pt. reports overall doing much better. Pt. reports being 99% better overall. pt. pleased. Pain Cervical spine: Pain Intensity (Out of 10): 0 Overall Improvement % Improvement: 99 Objective Objective/Function: CERVICAL ROM: full without increase in symptoms 5/5 strength throughout cervical spine and B shoulders. Pt. report some grinding in her neck with rotation, but no pain. Pt. is sleeping well. I want her to continue with her neck extension ROM. Pt. consents. She is to continue with all of her postural strengthening. She has met all goals and will be DC from PT at this point in time. Goals Goal 1:: LTG: Pt. to have full cervical extension and rotation without increase in L sided cervical spine pain. Goal Progress: Goal Met Goal 2:: LTG: Pt. to have 5/5 cervical spine strength. Goal Progress: Goal Met Goal 3:: LTG: Pt. to complete cervical endurance testing with holding 1 min. Goal Progress: Goal Met Goal 4:: LTG: pt. ot have no pain with all ADLs. Goal Progress: Goal Met Plan Plan: Pt. to be DC from PT at this point in time. She as met all goals. D/C Information d/c sentence: If there are questions or concerns regarding this patient's physical therapy, please feel free to call me at [phone]. Thank you for the referral of this patient. Sincerely, Gigi Dugan Sipos, DPT Balance/Gait/Functional tests Balance/Special Test Scores Oswestry Neck Score: 1 Improvement % Improvement: 99
== END 2025-09-24 19:00 | disposition home or self-care (01) ==
LOC: PT 12:00
PROVIDERS: PCP Family Medicine; Referring Provider Orthopaedic Surgery Orthopaedic Surgery of the Spine; Visit Provider Orthopaedic Surgery Orthopaedic Surgery of the Spine
DX: M43.12 Spondylolisthesis, cervical region (principal); M50.30 Other cervical disc degeneration, unspecified cervical region
CPT/HCPCS: 97110; 97140; 97161; 97530